=== PATIENT | female | born 1945 | race Caucasian/White ===

== ENCOUNTER 2025-03-05 13:09 | Day surgery (SDC) | payer MEDICARE, SELFPAY ==
--- NOTE | 2025-03-01 13:25 | PAT.ANE_ITS ---
Pre-Assessment Diagnosis/Proposed Procedure Planned Operative Procedure(s): EGD/CSCOPE Anesthesia History Anesthesia History - clinical documentation consultant: Anesthesia History - clinical documentation consultant Hx Hospitalization No 03/01/25 09:42 Any Problems With Anesthesia Yes: 15 YRS AGO AWAKENED 03/01/25 09:42 DURING CSCOPE Cholinesterase deficiency No 03/01/25 09:42 You/Your Family Experience No 03/01/25 09:42 fever (hyperthermia) with Relationship Recent Exposure to Contagious Disease Does patient have nerve No 03/01/25 09:42 stimulator Patient instructed to have device shut off --Does patient have Pacemaker or ICD? When Was Last Pacemaker Check QUESTION #4 FULL TEXT: You/Your Family Experience fever (hyperthermia) with Anesthesia Last Oral Intake Last Oral intake: Last Oral Intake NPO since Meds taken in AM with sips of water? Meds patient instructed to take am of surgery PONV PONV - clinical documentation consultant: PONV - clinical documentation consultant Female Yes 03/01/25 09:42 HX of Motion Sickness Yes 03/01/25 09:42 HX of N/V After Surgery No 03/01/25 09:42 Non-Smoker Yes 03/01/25 09:42 Duration of Surgery greater No 03/01/25 09:42 than 60 minutes Number of Risk Factors 3 03/01/25 09:42 PONV Score Moderate Risk 03/01/25 09:42 Height & Weight Height & Weight: Anesthesia: Height & Weight Height 5 ft 01/28/25 14:54 Respiratory Assessment Respiratory Assessment - clinical documentation consultant: Respiratory Tract Infection Hx - clinical documentation consultant Hx Respiratory Tract Infection No 03/01/25 09:42 STOP Sleep Apnea STOP Sleep Apnea - clinical documentation consultant: STOP Sleep Apnea - clinical documentation consultant Hx Hypertension Yes: CONTROLLED WITH MED 03/01/25 09:42 Hx Sleep Apnea No 03/01/25 09:42 CPAP BIPAP Do you snore loudly (louder No 03/01/25 09:42 than talking or can be heard Do you often feel tired/ No 03/01/25 09:42 fatigued/ sleepy during daytime? Has anyone observed you stop No 03/01/25 09:42 breathing during sleep? STOP Results Negative 03/01/25 09:42 QUESTION #5 FULL TEXT : Do you snore loudly (louder than talking or can be heard through closed doors)? 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 Specify any problems Hx of Preganancy in last 3 No 03/01/25 09:42 Months Nurse Filling Out Transfusion DSCHRIBER 03/01/25 09:42 & Questions: Date: 03/01/25 03/01/25 09:42 Time: 09:45 03/01/25 09:42 Patient unable to answer at this time (ie. confused, unrespo /Reproduction History /Reproductive History - clinical documentation consultant: /Reproductive Hx- clinical documentation consultant Hx Now No 03/01/25 09:42 Gestational Age (in weeks): EDC: Hx Hx Para Hx Section SAB No 03/01/25 09:42 PFS Medical History (Updated 03/01/25 @ 09:55 by Nicci Buckley) Post-menopausal Cancer Arthritis High cholesterol Back pain Gastric reflux Non-smoker Shortness of breath on exertion Leg cramps History of edema History of echocardiogram Cardiology follow-up encounter History of hiatal hernia Panic attacks MVP (mitral valve prolapse) Hypertriglyceridemia History of [place] (myocardial infarction) Diarrhea Aortic regurgitation Hypertension Home Medications ?Medication ?Instructions ?Recorded ?Last Taken ?Type cholecalciferol (vitamin D3) 50 2,000 unit PO QDAY Unknown History mcg (2,000 unit) capsule escitalopram oxalate 10 mg tablet 10 mg PO QDAY #90 ta bs 11/29/17 Unknown Rx multivitamin 1 tab PO QAM 11/29/17 History omeprazole magnesium 20 mg 20 mg PO QDAY 11/29/17 Unkn own History tablet,delayed release (Prilosec OTC) cyanocobalamin (vitamin B-12) 1,000 mcg PO QDAY 02/27/25 History 1,000 mcg capsule flaxseed oil 1,000 mg capsule 1,000 mg PO TID 01/28/25 Unknown History hydralazine 50 1 cap PO DAILY 01/28/25 Unkn own History mg-hydrochlorothiazide 50 mg capsule potassium chloride 8 mEq 8 meq PO QDAY 01/28/25 Unkno wn History capsule,extended release rosuvastatin 40 mg tablet 40 mg PO QDAY 01/28/25 Unkno wn History ondansetron HCl 4 mg tablet 4 mg PO Q8H PRN nausea and 02/14/25 Unknown Rx vomiting #10 tabs aspirin 81 mg tablet,delayed 81 mg PO DAILY 03/01/25 U nknown History release (Adult Aspirin Regimen) colestipol 1 gram tablet 1 g PO TIDWMEAL PRN stomach upset 03/01/25 Unknown History Allergy/AdvReac Type Severity Reaction Status Date / Time acetaminophen (From Percocet) Allergy Severe Unknown Verified 03/01/25 09:38 nitrofurantoin (From Allergy Severe swelling Verified 03/01/25 09:38 Macrobid) oxycodone (From Percocet) Allergy Severe Unknown Verified 03/01/25 09:38 penicillin G Allergy Severe unknown Verified 03/01/25 09:38 Sulfa (Sulfonamide Allergy Severe unknown Verified 03/01/25 09:38 Antibiotics) phenylpropanolamine (From Allergy Mild Other Verified 03/01/25 09:38 Entex LA) guaifenesin AdvReac Intermediate PT UNSURE Verified 03/01/25 09:58 OF REACTION phenylephrine AdvReac Intermediate PT UNSURE Verified 03/01/25 09:58 OF REACTION atorvastatin AdvReac Mild muscle pain Verified 03/01/25 09:38 Family History Father Cancer leukemia Mother Heart disease Surgical History (Updated 03/01/25 @ 09:55 by Nicci Buckley) Hx of right cataract extraction Hx of left cataract extraction History of coronary artery stent placement History of cardiac catheterization History of esophagogastroduodenoscopy (EGD) History of cholecystectomy History of colonoscopy Social History Smoking Status: Never smoker alcohol intake: never substance use type: does not use what type of physical activity do you participate in: walking and bicycling frequency: 3-4 times per week Audit: Pertinent Findings Pertinent Findings EKG Perinent findings: 01/31/2025. Ventricular rhythm, PVCs. Aberrant ventricular conduction. Possible anterior infarct age undetermined. Stress test pertinent findings: Negative. Lexiscan. 09/18/2024. EF 67%. Consult pertinent findings: Family practice physicians.. 01/30/2025. Mora Stevens. Findings. Shortness of breath. Recent stress test no ischemia. Continue to monitor. Stable coronary artery disease. Currently no anginal symptoms. Status post 3 stents. 01/05/2021. Hypertension. Controlled. Recommendation Anesthesia Recommendation Anesthesia recommendation: OPTIMIZED for anesthesia
[2025-03-05] VITALS (7 sets, daily range): BP systolic 135–179; BP diastolic 50–58; PULSE 47–77; RESP 16; TEMP 35.8–36.1; O2SAT 96–100; BMI 22.6
[2025-03-05] MEDS: Lactated Ringers 1,000 ML 15 ML IV (13:39)
--- NOTE | 2025-03-05 13:56 | PCM.PRE.AN2 ---
ASA Classification* ASA Classification ASA Classification: 3 Assessment & Plan Anesthesia* Anesthesia Assessment Anesthesia Assessment: Discussed sedation and/or anesthesia options, risks, benefits, and alternatives with patient/parents/legal guardian/POA. Questions invited. The patient/parents/legal guardian/POA seems to understand and agrees to proceed with anesthesia plan. Reviewed the physical assessment, medical history, allergy history and patient home medications list prior to surgery/procedure/anesthetic and documented any changes. Performed airway and anesthesia risk assessments. 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 When Was Last Pacemaker Check QUESTION #4 FULL TEXT: You/Your Family Experience fever (hyperthermia) with Anesthesia Last Oral Intake Last Oral intake: Last Oral Intake NPO since 11:00 03/05/25 13:27 Meds taken in AM with sips of No 03/05/25 13:27 water? 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 Female Yes 03/01/25 09:42 HX of Motion Sickness Yes 03/01/25 09:42 HX of N/V After Surgery No 03/01/25 09:42 Non-Smoker Yes 03/01/25 09:42 Duration of Surgery greater No 03/01/25 09:42 than 60 minutes Number of Risk Factors 3 03/01/25 09:42 PONV Score Moderate Risk 03/01/25 09:42 Height & Weight Height & Weight: Anesthesia: Height & Weight Height 5 ft 4 in 03/05/25 13:27 Weight: 60 kg 03/05/25 13:27 Body Mass Index (BMI) 22.6 03/05/25 13:27 Respiratory Assessment Respiratory Assessment - men's and boys' clothing salesperson: Respiratory Tract Infection Hx - men's and boys' clothing salesperson Hx Respiratory Tract Infection No 03/01/25 09:42 STOP Sleep Apnea STOP Sleep Apnea - men's and boys' clothing salesperson: STOP Sleep Apnea - men's and boys' clothing salesperson Hx Hypertension Yes: CONTROLLED WITH MED 03/01/25 09:42 Hx Sleep Apnea No 03/01/25 09:42 CPAP BIPAP Do you snore loudly (louder No 03/01/25 09:42 than talking or can be heard Do you often feel tired/ No 03/01/25 09:42 fatigued/ sleepy during daytime? Has anyone observed you stop No 03/01/25 09:42 breathing during sleep? STOP Results Negative 03/01/25 09:42 QUESTION #5 FULL TEXT : Do you snore loudly (louder than talking or can be heard through closed doors)? 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 Specify any problems Hx of Preganancy in last 3 No 03/01/25 09:42 Months Nurse Filling Out Transfusion DSCHRIBER 03/01/25 09:42 & Questions: Date: 03/01/25 03/01/25 09:42 Time: 09:45 03/01/25 09:42 Patient unable to answer at this time (ie. 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: /Reproductive Hx- men's and boys' clothing salesperson Hx Now No 03/01/25 09:42 Gestational Age (in weeks): EDC: Hx Hx Para Hx Section SAB No 03/01/25 09:42 Active Medications Active Medications: Current Medications Generic Name Dose Route Start Last Admin Trade Name Freq PRN Reason Stop Dose Admin Lactated Ringer's 1,000 mls @ 15 mls/hr 03/05/25 13:30 03/05/25 13:39 IV 15 mls/hr .Q48H ALEYDA Administration PFSH Medical History Post-menopausal Cancer Arthritis High cholesterol Back pain Gastric reflux Non-smoker Shortness of breath on exertion Leg cramps History of edema History of echocardiogram Cardiology follow-up encounter History of hiatal hernia Panic attacks MVP (mitral valve prolapse) Hypertriglyceridemia History of [place] (myocardial infarction) Diarrhea Aortic regurgitation Hypertension Home Medications ?Medication ?Instructions ?Recorded ?Last Taken ?Type cholecalciferol (vitamin D3) 50 2,000 unit PO QDAY 11/29/17 Unknown History mcg (2,000 unit) capsule escitalopram oxalate 10 mg tablet 10 mg PO QDAY #90 tabs 11/29/17 Unknown Rx multivitamin 1 tab PO QAM 11/29/17 02/27/25 History omeprazole magnesium 20 mg 20 mg PO QDAY 11/29/17 Unknown History tablet,delayed release (Prilosec OTC) cyanocobalamin (vitamin B-12) 1,000 mcg PO QDAY 01/28/25 02/27/25 History 1,000 mcg capsule flaxseed oil 1,000 mg capsule 1,000 mg PO TID 01/28/25 Unknown History hydralazine 50 1 cap PO DAILY 01/28/25 Unknown History mg-hydrochlorothiazide 50 mg capsule potassium chloride 8 mEq 8 meq PO QDAY 01/28/25 Unknown History capsule,extended release rosuvastatin 40 mg tablet 40 mg PO QDAY 01/28/25 Unknown History ondansetron HCl 4 mg tablet 4 mg PO Q8H PRN nausea and 02/14/25 Unknown Rx vomiting #10 tabs aspirin 81 mg tablet,delayed 81 mg PO DAILY 03/01/25 03/04/25 History release (Adult Aspirin Regimen) colestipol 1 gram tablet 1 g PO TIDWMEAL PRN stomach upset 03/01/25 Unknown History Allergy/AdvReac Type Severity Reaction Status Date / Time acetaminophen (From Percocet) Allergy Severe Unknown Verified 03/05/25 13:26 nitrofurantoin (From Allergy Severe swelling Verified 03/05/25 13:26 Macrobid) oxycodone (From Percocet) Allergy Severe Unknown Verified 03/05/25 13:26 penicillin G Allergy Severe unknown Verified 03/05/25 13:26 Sulfa (Sulfonamide Allergy Severe unknown Verified 03/05/25 13:26 Antibiotics) phenylpropanolamine (From Allergy Mild Other Verified 03/05/25 13:26 Entex LA) guaifenesin AdvReac Intermediate PT UNSURE Verified 03/05/25 13:26 OF REACTION phenylephrine AdvReac Intermediate PT UNSURE Verified 03/05/25 13:26 OF REACTION atorvastatin AdvReac Mild muscle pain Verified 03/05/25 13:26 Family History Father Cancer leukemia Mother Heart disease Surgical History Hx of right cataract extraction Hx of left cataract extraction History of coronary artery stent placement History of cardiac catheterization History of esophagogastroduodenoscopy (EGD) History of cholecystectomy History of colonoscopy Social History Smoking Status: Never smoker alcohol intake: never substance use type: does not use what type of physical activity do you participate in: walking and bicycling frequency: 3-4 times per week Review of Systems (Anesthesia) ROS Narrative System reviewed and no additional complaints, except as documented.
--- NOTE | 2025-03-05 14:30 | COLBX_PTH ---
PATIENT: ERMA MIGUEL LOC: EN U#:[id number] AGE/SX: 80/F ROOM: RE03/05/[address]: Dr. Juan M Callahan DO : 1945 BED: DIS: 03/05/2025 SPEC #: [id number] RECD: 03/05/25 18:20 STATUS: SHANNAN RENoah #: [id number] BROOK[place]NN: 03/05/25 14:[address]: Juan M Callahan DEPT: SURGICAL PATHOLOGY RECD BY: Matteo Szymanski ENTERED: 03/06/25 10:40 SP TYPE: COLON BX OTHR DR: Dr. Miki Mccann, DO Tissues: A - Gastric mucous membrane B - Gastric mucous membrane C - Duodenum, NOS D - Cecum, NOS E - Ileum, NOS F - COLON BIOPSY Procedures: Immunohistochemical Stains Surgery Specimen Level IV HEADER OPERATION: Colonoscopy with biopsy, EGD with biopsy PRE-OP DIAGNOSIS: Diarrhea TISSUE SUBMITTED: A- Gastric body biopsy, B- Gastric antrum biopsy, C- Duodenum biopsy, D- Cecal polyp biopsy, E- Terminal ileum biopsy, F- Random colon biopsy MICROSCOPIC DIAGNOSIS A. Gastric body, biopsy: - Mildly active chronic inflammation with features of reactive gastropathy. - IHC negative for H. pylori organisms. B. Gastric antrum, biopsy: * Features of reactive gastropathy. * IHC negative for H. pylori organisms. C. Duodenum, biopsy: * Normal villous architecture with Markell gland hyperplasia. * Negative for increased intraepithelial lymphocytes. D. Cecum, polyp, biopsy: * Tubular adenoma. E. Terminal ileum, biopsy: * No specific pathologic change. F. Colon, random, biopsy: * No specific pathologic change. * The histologic features of microscopic colitis are not demonstrated. MICROSCOPIC DESCRIPTION Slides are reviewed. All matched controls reacted appropriately. These tests were developed and their performance characteristics determined by [facility]. They may not have been cleared or approved by the [place]. Food and Drug Administration. The FDA has determined that such clearance or approval is not necessary. The above immunohistochemical/dualISH markers are viewed by the Pathologist. GROSS DESCRIPTION A. Received in fixative is one container labeled with the patient's name and designated Gastric body biopsy. The specimen consists of three irregular fragments of matias tissue that measure 0.1 to 0.7 cm. The specimen is totally submitted in one cassette. B. Received in fixative is one container labeled with the patient's name and designated Gastric antrum biopsy. The specimen consists of one irregular fragment of matias tissue that measures 0.4 cm. The specimen is totally submitted in one cassette. C. Received in fixative is one container labeled with the patient's name and designated Duodenum biopsy. The specimen consists of four irregular fragments of matias tissue that measure 0.3 to 0.6 cm. The specimen is totally submitted in one cassette. D. Received in fixative is one container labeled with the patient's name and designated Cecal polyp biopsy. The specimen consists of two irregular fragments of matias tissue that measure 0.3 and 0.4 cm. The specimen is totally submitted in one cassette. E. Received in fixative is one container labeled with the patient's name and designated Terminal ileum biopsy. The specimen consists of multiple irregular fragments of matias tissue that in aggregate measure 0.8 x 0.7 x 0.1 cm. The specimen is totally submitted in one cassette. F. Received in fixative is one container labeled with the patient's name and designated Random colon biopsy. The specimen consists of multiple irregular fragments of matias tissue that in aggregate measure 1.2 x 0.8 x 0.2 cm. The specimen is totally submitted in one cassette. [place] 03/06/2025 CPT:[id number]
--- NOTE | 2025-03-05 14:32 | PCM.HP.STD ---
[facility] - General General Date of Admission: 03/05/25 Date of Service: 03/05/25 Chief Complaint: weight loss, diarrhea, abdominal pain [facility] Narrative ERMA MIGUEL, is a 80 F who presents the Chief Complaint: weight loss, diarrhea, abdominal pain Details: Labs 09/18/2024 HGB 11, PLT 204 - pretzel, water, and toast the past toast - aching abdominal pain and diarrhea after meals - 6lb weight loss in the past 10 days - diarrhea is after eating - denies any h/o pancreatitis - denies any ATB or travel - denies any well water - denies any bleeding - 2-4x a day depending on how much she has eaten - c/o fecal incontinence - denies any Imodium in the past week - nausea, denies any emesis, resolves after a BM - probiotic x6 weeks no change in symptoms - Plavix h/o IA - CCX 15-20 years ago - reports she was not aware CCX could result in diarrhea - denies any nocturnal stools - seen in office today with her The patient is an 79-year-old female presenting with gastrointestinal symptoms, primarily chronic diarrhea. The patient reports experiencing diarrhea after meals for the past 20 years, which has worsened in frequency and urgency over the last five years. Despite attempts to identify food triggers, she has been unable to connect diarrhea to specific dietary factors. The episodes consist of liquid diarrhea typically occurring soon after meals. In efforts to manage symptoms, she has used loperamide (Imodium) on an as-needed basis without experiencing rebound constipation. In the past week, she reported an intensification of symptoms, including abdominal cramping and pain, leading to significant dietary restriction to bland foods like pretzels, water, and toast. Despite these dietary modifications, she experienced a weight loss of approximately six pounds over ten days. It is noted that she abstained from eating due to these symptoms, impacting her bowel movements' frequency. The patient's medical history is significant for a cholecystectomy performed 15 to 20 years ago, correlating with the onset of diarrhea 20 years ago. She was briefly on a probiotic but discontinued it when gastrointestinal discomfort manifested without subsequent improvement in symptoms. Her medication regimen includes Plavix, taken post-myocardial infarction, and chronic use of escitalopram and omeprazole. She is also on rosuvastatin and a potassium supplement due to previous low levels attributed to stool losses. The patient has no history of pancreatitis, recent antibiotic use, travel, or well water consumption. There is no family history of colon cancer, and she denies any history of colorectal polyps. The patient shared concerns regarding urgent bowel movements causing accidents, although nocturnal diarrhea is rare. She experiences nausea and cramping alleviated by bowel movements and heating pad use, without vomiting or fever. ROS Const Constitutional: Positive for fatigue and weight change (loss); No fever(s) ENT ENT: No difficulty swallowing Gastro GI: Positive for abdominal pain, bloating, change in bowel habits, diarrhea, heartburn and nausea/dyspepsia; No belching, change in stool character, coffee ground emesis, constipation, cramping, difficulty swallowing, feeling full early, excessive flatus, incontinent of stools, Vomiting blood/hematemesis, Blood in stool, loose stools, Black,tarry stools, pain with swallowing, vomiting or other Musc Musculoskeletal: Positive for back pain, muscle cramps, stiffness and Arthritis; No joint pain Skin Skin: No yellowing of the eye or itchy eyes Neuro Neurology: Positive for dizziness Psych Psychiatric: No anxiety and No depression Endo Endocrine: Positive for fatigue and weight change (loss) Aller/Imm Allergy/Immunologic: No itchy eyes Dioni/Lymp Hematologic/Lymphatic: Positive for easy bleeding and easy bruising ROS Narrative - Gastrointestinal: Reports chronic diarrhea, postprandial urgency, stomach cramps, abdominal pain, weight loss. Denies vomiting, blood in stools, recent travel history, recent antibiotic usage. - Cardiovascular: History of myocardial infarction, taking Plavix; denies recent chest pain. - Constitutional: Reports weight loss, general malaise. - Respiratory: Denies lung disease or symptoms. - Genitourinary: History of kidney stones; denies current symptoms. - Musculoskeletal: Denies significant symptoms. - Neurological: Denies symptoms. [facility] Medical History Post-menopausal Cancer Arthritis High cholesterol Back pain Gastric reflux Non-smoker Shortness of breath on exertion Leg cramps History of edema History of echocardiogram Cardiology follow-up encounter History of hiatal hernia Panic attacks MVP (mitral valve prolapse) Hypertriglyceridemia History of IA (myocardial infarction) Diarrhea Aortic regurgitation Hypertension Home Medications ?Medication ?Instructions ?Recorded ?Last Taken ?Type cholecalciferol (vitamin D3) 50 2,000 unit PO QDAY 11/29/17 Unknown History mcg (2,000 unit) capsule escitalopram oxalate 10 mg tablet 10 mg PO QDAY #90 tabs 11/29/17 Unknown Rx multivitamin 1 tab PO QAM 11/29/17 02/27/25 History omeprazole magnesium 20 mg 20 mg PO QDAY 11/29/17 Unknown History tablet,delayed release (Prilosec OTC) cyanocobalamin (vitamin B-12) 1,000 mcg PO QDAY 01/28/25 02/27/25 History 1,000 mcg capsule flaxseed oil 1,000 mg capsule 1,000 mg PO TID 01/28/25 Unknown History hydralazine 50 1 cap PO DAILY 01/28/25 Unknown History mg-hydrochlorothiazide 50 mg capsule potassium chloride 8 mEq 8 meq PO QDAY 01/28/25 Unknown History capsule,extended release rosuvastatin 40 mg tablet 40 mg PO QDAY 01/28/25 Unknown History ondansetron HCl 4 mg tablet 4 mg PO Q8H PRN nausea and 02/14/25 Unknown Rx vomiting #10 tabs aspirin 81 mg tablet,delayed 81 mg PO DAILY 03/01/25 03/04/25 History release (Adult Aspirin Regimen) colestipol 1 gram tablet 1 g PO TIDWMEAL PRN stomach upset 03/01/25 Unknown History Allergy/AdvReac Type Severity Reaction Status Date / Time acetaminophen (From Percocet) Allergy Severe Unknown Verified 03/05/25 13:26 nitrofurantoin (From Allergy Severe swelling Verified 03/05/25 13:26 Macrobid) oxycodone (From Percocet) Allergy Severe Unknown Verified 03/05/25 13:26 penicillin G Allergy Severe unknown Verified 03/05/25 13:26 Sulfa (Sulfonamide Allergy Severe unknown Verified 03/05/25 13:26 Antibiotics) phenylpropanolamine (From Allergy Mild Other Verified 03/05/25 13:26 Entex [place]) guaifenesin AdvReac Intermediate PT UNSURE Verified 03/05/25 13:26 OF REACTION phenylephrine AdvReac Intermediate PT UNSURE Verified 03/05/25 13:26 OF REACTION atorvastatin AdvReac Mild muscle pain Verified 03/05/25 13:26 Family History Father Cancer leukemia Mother Heart disease Surgical History Hx of right cataract extraction Hx of left cataract extraction History of coronary artery stent placement History of cardiac catheterization History of esophagogastroduodenoscopy (EGD) History of cholecystectomy History of colonoscopy Social History Smoking Status: Never smoker alcohol intake: never substance use type: does not use what type of physical activity do you participate in: walking and bicycling frequency: 3-4 times per week ROS Constitutional Constitutional: Denies fatigue, fever(s), poor appetite, weight gain or weight loss Gastrointestinal Gastrointestinal: Denies belching, bloating, change in bowel habits, change in stool character, chewing difficulty, coffee ground emesis, constipation, cramping, diarrhea, dyspepsia, dysphagia, early satiety, excessive flatus, fecal incontinence, heartburn, hematemesis, hematochezia, hemorrhoids, loose stools, melena, nausea, odynophagia, rectal bleeding, tenesmus, vomiting or weight changes Vital Signs Vital Signs Vital Signs: 03/05/25 13:27 03/05/25 13:27 03/05/25 14:03 Temperature 97.0 F L 97.0 F L Temperature Source Temporal Pulse Rate 47 L 47 L Respiratory Rate 16 16 Respiratory Pattern Normal Blood Pressure 179/50 H 179/50 H Blood Pressure Mean 93 Blood Pressure Source Monitor Blood Pressure Position Semi-Fowlers Pulse Ox 100 100 Oxygen Delivery Method Room Air Room Air Weight Weight: 132 lb 4.438 oz Body Mass Index (BMI) 22.6 Physical Exam Const alert, oriented x3, no apparent distress and healthy appearing General Appearance: cooperative GI normal to inspection, nondistended, normoactive bowel sounds, soft to palpation, non-tender and non-distended Percussion: normal to percussion Rectal Exam: deferred Assessment & Plan Assessment/Plan (1) Diarrhea: PLAN: Assessment and Plan Assessment and Plan (1) Diarrhea: Status: Acute Plan: Initiate stool testing to rule out infectious or inflammatory causes. Plan for a scheduled colonoscopy to ensure structural integrity of the colon and rule out potential lesions. Discussed potential initiation of cholestyramine therapy contingent on negative stool studies for bacterial or parasitic agents. If appropriate, prescribe cholestyramine starting with half-packet twice daily, adjusting based on tolerance and efficacy, to address bile acid-induced diarrhea. Medications: New peg 3350-sod sulf,[id number] 178.7-7.3-0.5 gram (Suflave) Take as directed for split dose bowel prep 2 mL 0RF cholestyramine (Cholestyramine Light) administer w/meal; avoid other meds within 1hr before or 4-6hr after dose 2 grams PO BID 30 ea 1RF Plan 79-year-old female with history of cholecystectomy presenting with chronic diarrhea. The symptomatology, including postprandial diarrhea since the removal of the gallbladder, suggests bile acid diarrhea, likely exacerbated by changes in dietary habits and prior medical history. Notably, her bowel pattern has significantly hindered quality of life recently, causing distress and weight loss. The patient exhibits other symptoms such as nausea and abdominal cramping, reasonably correlated with bile acid malabsorption. Differential diagnoses were considered, but her clinical picture aligns best with bile acid diarrhea. However, confirmation and exclusion of other etiologies will be conducted via stool testing and a future colonoscopy. Patient Instructions: Complete [facility] stool testing Colonoscopy - SuFlave If stool testing is negative she will start Cholestyramine (RX sent to pharmacy)
--- OUTSIDE RECORDS SUMMARY | 2025-03-05 15:20 | XMS RPT_ITS | CCD ---
Author Organization [facility] Care Team Providers Care Manager Data Name Role Phone CHUCK MCCANN DO Primary Care Unavailable FISH MACHINE MOLDER SQUEEZE-REFUELERKALPESH Attending Unavailab le MAST MACHINE MOLDER SQUEEZE-REFUELER, [place] Primary Care Physician Dr. Chuck Mccann DO Primary Care Provider Dr. Chuck Mccann DO Referring Provider Benjamín LEMON-CCrystal Attending Provider MAST MACHINE MOLDER SQUEEZE-REFUELER, [place] Primary Care Unavailabl e MAST MACHINE MOLDER SQUEEZE-REFUELER, [place] Attending Unavailabl e MAST MACHINE MOLDER SQUEEZE-REFUELER, [place] Primary Care Unavailabl e MAST MACHINE MOLDER SQUEEZE-REFUELER, [place] Attending Unavailabl e KAPPER MACHINE MOLDER SQUEEZE-REFUELER, CIERRA Eid Admitting Unavaila ble MAST MACHINE MOLDER SQUEEZE-REFUELER, [place] Primary Care Unavailabl e DAY JIMÉNEZ DO Attending Unavailable FISH MACHINE MOLDER SQUEEZE-REFUELER, KALPESH Attending Unavailab le MAST MACHINE MOLDER SQUEEZE-REFUELER, [place] Primary Care Unavailabl e Chuck Mccann Primary Care Unavailable Chuck Mccann Referring Unavailable Crystal Butts Attending Unavailable Chuck Mccann Primary Care Unavailable Juan M Callahan Attending Unavailable Allergies Allergy Classification Reported Allergen(s) Allergy Type Date of Onset Reaction(s) Facility (3 sources) Acetaminophen / oxyCODONE; Translations: [acetaminophen-oxycodo ne] Drug Allergy [facility] (4 sources) atorvastatin; Translations: [atorvastatin] Drug Allergy 01-29-20 Muscle pain (finding) [facility] (3 sources) guaiFENesin / Phenylephrine / Phenylpropanolamine; Translations: [guaifenesin/phenyleph rine/PPA] Drug Allergy [facility] (2 sources) Penicillin; Translations: [penicillins] Drug Allergy [facility] (3 sources) Sulfonamide; Translations: [sulfa drugs] Drug allergy [facility] (1 source) Acetaminophen Drug Allergy 01-29-20 Unknown [facility] (1 source) guaiFENesin Drug Allergy 01-29-20 NEEDS FOLLOW-UP [facility] Comment on above: [facility] (1 source) Nitrofurantoin Drug Allergy 01-29-20 swelling [facility] (1 source) oxyCODONE Drug Allergy 01-29-20 Unknown [facility] (1 source) Penicillin G Drug Allergy 01-29-20 unknown [facility] (1 source) Phenylephrine Drug Allergy 01-29-20 NEEDS FOLLOW-UP [facility] Comment on above: [facility] (1 source) Phenylpropanolamine Drug Allergy 01-29-20 Other [facility] (1 source) Sulfonamides (Antibiotic) Allergy to substance 01-29-20 unknown [facility] (1 source) Penicillin; Translations: [penicillins] Drug Allergy [facility] (1 source) Acetaminophen Drug Allergy 03-01-20 [facility] (1 source) atorvastatin Drug Allergy 03-01-20 [facility] (1 source) guaiFENesin Drug Allergy 03-01-20 [facility] (1 source) Nitrofurantoin Drug Allergy 03-01-20 [facility] (1 source) oxyCODONE Drug Allergy 03-01-20 [facility] (1 source) Penicillin Drug Allergy 03-01-20 [facility] (1 source) Phenylephrine Drug Allergy 03-01-20 [facility] (1 source) Phenylpropanolamine Drug Allergy 03-01-20 [facility] (1 source) Sulfonamides (Antibiotic) Drug allergy (disorder) 03-01-20 [facility] Medications Current Medications Medication Drug Class(es) Dates Sig (Normalized) Sig (Original) Acidophilus Extra Strength oral capsule (1 source) Start: 11-19-2024 take 1 capsule by mouth once daily Acidophilus Extra Strength oral capsule Dose = 1 cap(s), Oral, qDay, # 30 cap(s), 2 Refill(s), Pharmacy: [facility]/pharmacy #[id number], 150, cm, 11/19/24 10:34:00 EDT, Height, kg, 11/19/24 10:34:00 EDT, Dosing Weight Start Date: 11/19/24 Status: Ordered Medication Dispense Status: Completed Quantity: 30.0 Unit: cap(s) Total Allowed Fills: 3 Fills Dispensed: 0 Adult Multivitamin Gummies (3 sources) Start: 12-26-2023 Adult Multivitamin Gummies 0 Refill(s) Start Date: 12/26/23 Status: Ordered Medication Dispense Status: Completed Total Allowed Fills: 1 Fills Dispensed: 0 Start: 12-26-2023 Adult Multivit basurto Gummies 0 Refill(s) Start Date: 12/26/23 Status: Ordered Repeat number: 1 Start: 12-26-2023 Adult Multivit basurto Gummies 0 Refill(s) Start Date: 12/26/23 Status: Ordered cholecalciferol 0.05 mg oral capsule (1 source) Vitamin D Start: 11-29-2017 take 1 capsule by mouth once daily Cholecalciferol (Vitamin D3) 2,000 unit capsule Active 2000 U PO daily November 29, 2017 12:00am sugar-free cholestyramine resin 4000 mg powder for oral suspension (1 source) Bile Acid Sequestrant Start: 01-28-2025 Cholestyramine (Cholestyramine Light) 4 gram powder in packet Active 2 g PO TWICE A DAY 30 1 January 28, 2025 12:00am administer w/meal; avoid other meds within 1hr before or 4-6hr after dose Chondroitin Sulfates / Glucosamine (1 source) Start: 01-28-2025 Glucosamine-Chondroi tin 250-200 mg tablet Active 2 {tbl} PO after meals January 28, 2025 12:00am clopidogrel 75 mg oral tablet (4 sources) P2Y12 Platelet Inhibitor Start: 09-10-2024 take 1 tablet by mouth once daily Clopidogrel (Plavix) 75 mg tablet Active 75 mg PO daily January 28, 2025 12:00am Start: 12-26-2023 take 1 mg by mouth once daily Plavix 75 mg oral tablet mg = tab(s), Oral, qDay, 0 Refill(s) Start Date: 12/26/23 Status: Ordered escitalopram 10 mg oral tablet (5 sources) Serotonin Reuptake Inhibitor Start: 09-12-2024 Lexapro 10 mg oral tablet Dose : 10 mg = 1 tab(s), Oral, Daily, # 90 tab(s), 3 Refill(s), [id number] 151, cm, 09/12/24 9:59:00 EDT, Height, kg, 09/12/24 9:59:00 EDT, Dosing Weight Start Date: 09/12/24 Status: Ordered Medication Dispense Status: Completed Quantity: 90.0 Unit: tab(s) Total Allowed Fills: 4 Fills Dispensed: 0 Start: 09-01-2017 End: 11-29-2017 Lexapro 10 mg oral tablet Do se : 10 mg = 1 tab(s), Oral, Daily, # 90 tab(s), 3 Refill(s), [id number], 151, cm, 09/12/24 9:59:00 EDT, Height, kg, 09/12/24 9:59:00 EDT, Dosing Weight Start Date: 09/12/24 Status: Ordered Quantity: 90.0 Unit: tab(s) Repeat number: 4 flax seed oil 1000 mg oral capsule (2 sources) Start: 07-23-2024 flax seed oil 1000 mg oral capsule Dose : 1,000 mg = 1 cap(s), Oral, TID, 0 Refill(s) Start Date: 07/23/24 Status: Ordered Medication Dispense Status: Completed Total Allowed Fills: 1 Fills Dispensed: 0 Start: 07-23-2024 flax seed oil 1000 mg oral capsule Dose : 1,000 mg = 1 cap(s), Oral, TID, 0 Refill(s) Start Date: 07/23/24 Status: Ordered Repeat number: 1 Hydralazine-Hydrochlorothiaz id 50-50 mg capsule (1 source) Start: 01-28-2025 Hydralazine-Hydrochlorothiaz id 50-50 mg capsule Active NMA PO January 28, 2025 12:00am hydroCHLOROthiazide 25 mg / losartan potassium 100 mg oral tablet (5 sources) Thiazi de Steven ic, Angiot ensin 2 Recept or Blocke r Start: 09-01-2017 End: 09-07-2025 take 1 tablet by mouth once daily hydrochlorothiazide-losartan 25-100 mg oral tablet Dose = 1 tab(s), Oral, qDay, # 90 tab(s), 3 Refill(s), Pharmacy: [facility]/pharmacy #[id number], 151, cm, 09/12/24 9:59:00 EDT, Height, kg, 09/12/24 9:59:00 EDT, Dosing Weight Start Date: 09/12/24 Stop Date: 09/07/25 Status: Ordered Medication Dispense Status: Completed Quantity: 90.0 Unit: tab(s) Total Allowed Fills: 4 Fills Dispensed: 0 linseed oil 1000 mg oral capsule (1 source) Start: 01-28-2025 take 1 capsul e by mouth three times daily at [place] Flaxseed Oil 1,000 mg capsule Active 1000 mg PO THREE TIMES A DAY January 28, 2025 12:00am administer with meals magniesum (1 source) Start: 03-14-2024 magniesum magniesum, 0 Refill(s), 70.2 Start Date: 03/14/24 Status: Ordered Multivitamin tablet (1 source) Start: 11-29-2017 Multivitamin tablet Active 1 {tbl} PO EVERY MORNING November 29, 2017 12:00am nitroglycerin 0.4 mg subling ual tablet (3 sources) Nitrat e Vasodi lator Start: 10-02-2024 nitroglycerin 0.4 mg subling ual tablet 0.4 mg Dose = 1 tab(s), Sublingual, q5min, PRN for chest pain, # 25 tab(s), 1 Refill(s), Pharmacy: [facility]/pharmacy #[id number], 155, cm, 10/02/24 9:56:00 EDT, Height, kg, 10/02/24 9:56:00 EDT, Dosing Weight Start Date: 10/02/24 Status: Ordered Medication Dispense Status: Completed Quantity: 25.0 Unit: tab(s) Total Allowed Fills: 2 Fills Dispensed: 0 Start: 12-26-2023 End: 02-10-2024 nitroGLYcerin Dose : 0.4 mg =, Sublingual, q5min, If chest pain not relieved in 5 minutes after first dose, seek immediate medical attention, 0 Refill(s) Start Date: 12/26/23 Stop Date: 02/10/24 Status: Ordered omeprazole 20 mg oral tablet (4 sources) Proton Pump Inhibitor Start: 12-26-2023 take 1 dose by mouth once daily PriLOSEC Dose : 20 mg =, Oral, qDay, 0 Refill(s) Start Date: 12/26/23 Status: Ordered Medication Dispense Status: Completed Total Allowed Fills: 1 Fills Dispensed: 0 Start: 11-29-2017 take 1 tablet by rodney th once daily Omeprazole Magnesium (Prilosec Otc) 20 mg tablet,delayed release (DR/EC) Active 20 mg PO daily November 29, 2017 12:00am Osteo Bi-Flex Triple Strengt h oral tablet (3 sources) Start: 12-26-2023 Osteo Bi-Flex Triple Strength oral tablet 0 Refill(s) Start Date: 12/26/23 Status: Ordered Medication Dispense Status: Completed Total Allowed Fills: 1 Fills Dispensed: 0 Start: 12-26-2023 Osteo Bi-Flex Triple Strength oral tablet 0 Refill(s) Start Date: 12/26/23 Status: Ordered Repeat number: 1 Start: 12-26-2023 Osteo Bi-Flex Triple Strength oral tablet 0 Refill(s) Start Date: 12/26/23 Status: Ordered Peg 3350-Sod Sulf,Tuoc-Cmh-Xky (Suflave) 178.7-7.3-0.5 gram recon soln (1 source) Start: 01-28-2025 Peg 3350-Sod Sulf,Qwqa-Ueb-Dyb (Suflave) 178.7-7.3-0.5 gram recon soln Active 0 PO .COMPLEX 2 0 January 28, 2025 12:00am Take as directed for split dose bowel prep potassium chloride 8 meq extended release oral capsule (4 sources) Start: 01-28-2025 take 1 capsule by mouth once daily Potassium Chloride 8 mEq capsule, extended release Active 8 meq PO daily January 28, 2025 12:00am Start: 09-12-2024 Potassium Chlo ride (Vyt-Pldv-Mqx M20) 20 mEq oral tablet, extended release Dose : 20 mEq = 1 tab(s), Oral, qDay, # 90 tab(s), 3 Refill(s), [id number], 151, cm, 09/12/24 9:59:00 EDT, Height, kg, 09/12/24 9:59:00 EDT, Dosing Weight Start Date: 09/12/24 Status: Ordered Medication Dispense Status: Completed Quantity: 90.0 Unit: tab(s) Total Allowed Fills: 4 Fills Dispensed: 0 Start: 09-12-2024 Potassium Chlo ride (Qmb-Bojy-Kmn M20) 20 mEq oral tablet, extended release Dose : 20 mEq = 1 tab(s), Oral, qDay, # 90 tab(s), 3 Refill(s), [id number], 151, cm, 09/12/24 9:59:00 EDT, Height, kg, 09/12/24 9:59:00 EDT, Dosing Weight Start Date: 09/12/24 Status: Ordered Quantity: 90.0 Unit: tab(s) Repeat number: 4 Start: 02-20-2024 Potassium Chlo ride (Mqt-Sxre-Uof M20) 20 mEq oral tablet, extended release Dose : 20 mEq = 1 tab(s), Oral, qDay, # 90 tab(s), 0 Refill(s), Pharmacy: [facility] [place], 149.9, cm, 01/11/24 10:51:00 EDT, Height, kg, 01/11/24 10:51:00 EDT, Dosing Weight Start Date: 02/20/24 Status: Ordered rosuvastatin calcium 40 mg oral tablet (4 sources) HMG-CoA Reductase Inhibitor Start: 03-19-2024 take 1 tablet by mouth once daily Rosuvastatin 40 mg tablet Active 40 mg PO daily January 28, 2025 12:00am vitamin b12 1 mg oral capsule (3 sources) Vitamin B12 Start: 01-28-2025 take 1 capsule by mouth once daily Cyanocobalamin (Vitamin B-12) 1,000 mcg capsule Active 1000 ug PO daily January 28, 2025 12:00am Start: 09-17-2024 Vitamin B12 0 Refill(s) Start Date: 09/17/24 Status: Ordered Medication Dispense Status: Completed Total Allowed Fills: 1 Fills Dispensed: 0 Start: 09-17-2024 Vitamin B12 0 Refill(s) Start Date: 09/17/24 Status: Ordered Repeat number: 1 Vitamin D3 25 mcg (1000 intl units) oral capsule (3 sources) Start: 01-11-2024 Vitamin D3 25 mcg (1000 intl units) oral capsule Dose : 25 mcg = 1 cap(s), Oral, Daily, 0 Refill(s) Start Date: 01/11/24 Status: Ordered Medication Dispense Status: Completed Total Allowed Fills: 1 Fills Dispensed: 0 Start: 01-11-2024 Vitamin D3 25 mcg (1000 intl units) oral capsule Dose : 25 mcg = 1 cap(s), Oral, Daily, 0 Refill(s) Start Date: 01/11/24 Status: Ordered Repeat number: 1 Start: 01-11-2024 Vitamin D3 25 mcg (1000 intl units) oral capsule Dose : 25 mcg = 1 cap(s), Oral, Daily, 0 Refill(s) Start Date: 01/11/24 Status: Ordered Completed/Discontinued Medications Medication Drug Class(es) Dates Sig (Normalized) Sig (Original) amLODIPine 5 mg oral tablet (2 sources) Dihydropyridine Calcium Channel Magy Start: 11-29-2017 End: 01-28-2025 take 1 tablet by mouth once daily Amlodipine 5 mg tablet Discontinued 5 mg PO daily 90 1 November 29, 2017 1:48pm January 28, 2025 12:01pm aspirin 81 mg chewable tablet (1 source) Platelet Aggregation Inhibitor, Nonsteroidal Anti-inflammatory Drug Start: 11-29-2017 End: 01-28-2025 take 1 tablet by mouth once daily Aspirin 81 mg tablet,chewable Discontinued 81 mg PO daily November 29, 2017 12:00am January 28, 2025 12:01pm glucosamine sulfate 500 mg oral tablet (1 source) Start: 11-29-2017 End: 01-28-2025 take 1 tablet by mouth twice daily Glucosamine Sulfate (Glucosamine) 500 mg tablet Discontinued 500 mg PO TWICE A DAY November 29, 2017 12:00am January 28, 2025 12:01pm lactobacillus acidophilus [id number] unt oral capsule (1 source) Start: 01-28-2025 End: 01-28-2025 Lactobacillus Acidophilus 1 billion cell capsule Discontinued 1000 NMA PO daily January 28, 2025 12:00am January 28, 2025 2:53pm Problems Active Problems Problem Classification Problem Date Documented Da te Episodic/Chronic Anxiety disorders (4 sources) Panic attack; Translations: [Anxiety] 05-28-2016 Chronic Coronary atherosclerosis and other heart disease (6 sources) Coronary arteriosclerosis; Translations: [History of myocardial infarction] 09-12-2024 Chronic Deficiency and other anemia (2 sources) Anemia 09-12-2024 Episodic Disorders of lipid metabolism (4 sources) Hypertriglyceridemia; Translations: [Pure hyperglyceridemia] Onset: 5 09-12-2024 Chronic Esophageal disorders (3 sources) Gastroesophageal reflux disease 05-28-2016 Chronic Essential hypertension (6 sources) Hypertensive disorder; Translations: [Essential (primary) hypertension] Onset: 5 05-28-2016 Chronic Heart valve disorders (4 sources) Aortic valve regurgitation; Translations: [Mitral valve prolapse] 09-12-2024 Chronic Osteoarthritis (3 sources) Bilateral osteoarthritis of knees 12-26-2023 Chronic Other gastrointestinal disorders (1 source) Irritable bowel syndrome 11-19-2024 Chronic Other gastrointestinal disorders (3 sources) Diarrhea; Translations: [Diarrhea, unspecified] 01-28-2025 Episodic Other gastrointestinal disorders (1 source) Diarrhea, unspecified; Translations: [Diarrhea, unspecified] Onset: Episodic Unclassified (3 sources) Patient encounter status 12-26-2023 Past or Other Problems Problem Classification Problem Date Documented Da te Episodic/Chronic Conditions associated with dizziness or vertigo (1 source) Dizziness and giddiness; Translations: [Dizziness and giddiness] Onset: 09-17-2024 Episodic Nonspecific chest pain (1 source) Chest pain, unspecified; Translations: [Chest pain, unspecified] Onset: 09-17-2024 Episodic Other screening for suspected conditions (not mental disorders or infectious disease) (2 sources) Encounter for screening mammogram for malignant neoplasm of breast; Translations: [Encounter for screening mammogram for malignant neoplasm of breast] Onset: 03-27-2024 Episodic Results Test Name Value Interpretation Reference Range Facility /[place] 03-01-2025 /[facility] Medical Records Department [address] [place] [id number] PAT - Anesthesia 03/01/25 1325 MR#: [id number] Acct: [id number] Name: ERMA MIGUEL Rep #: [id number] : 1945 80 From: Joseph Hansen MD PCP: Dr. 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 When Was Last Pacemaker Check QUESTION #4 FULL TEXT: You/Your Family Experience fever (hyperthermia) with Anesthesia Last Oral Intake Last Oral intake: Last Oral Intake NPO since Meds taken in AM with sips of water? Meds patient instructed to take am of surgery PONV PONV - oceanography professor: PONV - oceanography professor Female Yes 03/01/25 09:42 HX of Motion Sickness Yes 03/01/25 09:42 HX of N/V After Surgery No 03/01/25 09:42 Non-Smoker Yes 03/01/25 09:42 Duration of Surgery greater No 03/01/25 09:42 than 60 minutes Number of Risk Factors 3 03/01/25 09:42 PONV Score Moderate Risk 03/01/25 09:42 Height Weight Height Weight: Anesthesia: Height Weight Height 5 ft 01/28/25 14:54 Respiratory Assessment Respiratory Assessment - oceanography professor: Respiratory Tract Infection Hx - oceanography professor Hx Respiratory Tract Infection No 03/01/25 09:42 STOP Sleep Apnea STOP Sleep Apnea - oceanography professor: STOP Sleep Apnea - oceanography professor Hx Hypertension Yes: CONTROLLED WITH MED 03/01/25 09:42 Hx Sleep Apnea No 03/01/25 09:42 CPAP BIPAP Do you snore loudly (louder No 03/01/25 09:42 than talking or can be heard Do you often feel tired/ No 03/01/25 09:42 fatigued/ sleepy during daytime? Has anyone observed you stop No 03/01/25 09:42 breathing during sleep? STOP Results Negative 03/01/25 09:42 QUESTION #5 FULL TEXT : Do you snore loudly (louder than talking or can be heard through closed doors)? Tobacco Use History Tobacco Use History - oceanography professor: Tobacco Use History - oceanography professor Tobacco Use Smoking Status Never smoker 03/01/25 09:42 Hx Tobacco Use No 03/01/25 09:42 Years Smoking Packs Smoked per Day Smoking Cessation Date was within the last 15 years Hx Smoking Cessation Date Hx Smoking Cessation Counseling Hematologic Medial History Hematologic Hx - oceanography professor: Hematologic Medical Hx - electronic news gathering editor Hx of Blood Transfusion No 03/01/25 09:42 Hx of Transfusion in last 3 No 03/01/25 09:42 Months Date of Last Transfusion (if within last 3 months) Ever experience any problems No 03/01/25 09:42 with transfusion(s)? Specify any problems Hx of Preganancy in last 3 No 03/01/25 09:42 Months Nurse Filling Out Transfusion DSCHRIBER 03/01/25 09:42 Questions: Date: 03/01/25 03/01/25 09:42 Time: 09:45 03/01/25 09:42 Patient unable to answer at this time (ie. confused, unrespo /Reproducti on History /Reproducti ve History - oceanography professor: /Reproducti ve Hx- oceanography professor Hx Now No 03/01/25 09:42 Gestational Age (in weeks): EDC: Hx Hx Para Hx Section SAB No 03/01/25 09:42 PFSH Medical History (Updated 03/01/25 @ 09:55 by Nicci Buckley) Post-menopausal Cancer Arthritis High cholesterol Back pain Gastric reflux Non-smoker Shortness of breath on exertion Leg cramps History of edema History of echocardiogram Cardiology follow-up encounter History of hiatal hernia Panic attacks MVP (mitral valve prolapse) Hypertriglyceridemia History of [place] (myocardial infarction) Diarrhea Aortic regurgitation Hypertension Home Medications ???Medication ???Instructions ???Recorded ???Last Taken ???Type cholecalciferol (vitamin D3) 50 2,000 unit PO QDAY 11/29/17 Unknow n History mcg (2,000 unit) capsule escitalopram oxalate 10 mg tablet 10 mg PO QDAY #90 tabs 11/29/17 U nknown Rx multivitamin 1 tab PO QAM 11/29/17 02/27/25 His tory omeprazole magnesium 20 mg 20 mg PO QDAY 11/29/17 Unknown His tory tablet,delayed release (Prilosec OTC) cyanocobalamin (vitamin B-12) 1,0 (more content not included)... Normal [facility] .Auto Diffon 02-25-2025 Basophil, Absolute 0.0 10 3/mcL Normal 0.0-0.3 [facility] Comment on above: Performed By: #### A BRUNO, CMP, CBC, GFR, ADIFF, LIPID ####[address] [address] Basophils/100 WBC (Bld) 0.5 % Normal 0.0-2.5 [facility] Comment on above: Performed By: #### A BRUNO, CMP, CBC, GFR, ADIFF, LIPID ####[address] [address] Eosinophil, Absolute 0.3 10 3/mcL Normal 0.0-0.7 [facility] Comment on above: Performed By: #### A BRUNO, CMP, CBC, GFR, ADIFF, LIPID ####[address] [address] Eosinophils/100 WBC (Bld) 5.3 % Normal 0.0-6.0 [facility] Comment on above: Performed By: #### A BRUNO, CMP, CBC, GFR, ADIFF, LIPID ####[address] [address] Lymphocyte, Absolute 1.5 10 3/mcL Normal 0.9-4.3 [facility] Comment on above: Performed By: #### A BRUNO, CMP, CBC, GFR, ADIFF, LIPID ####[address] [address] Lymphocytes/100 WBC (Bld) 23.5 % Normal 20.0-40.0 [facility] Comment on above: Performed By: #### A BRUNO, CMP, CBC, GFR, ADIFF, LIPID ####[facility] [place], [place] [address] Monocyte, Absolute 0.5 10 3/mcL Normal 0.1-1.4 [facility] Comment on above: Performed By: #### A BRUNO, CMP, CBC, GFR, ADIFF, LIPID ####[address] [address] Monocytes/100 WBC (Bld) 7.9 % Normal 2.0-13.0 [facility] Comment on above: Performed By: #### A BRUNO, CMP, CBC, GFR, ADIFF, LIPID ####[address] [address] Neutrophils/100 WBC (Bld) 62.8 % Normal 50.0-75.0 [facility] Comment on above: Performed By: #### A BRUNO, CMP, CBC, GFR, ADIFF, LIPID ####[place] [address] [place], [place] [address] .GFRon 02-25-2025 Estimated Glomerular Filtration Rate 61 ml/min/1.73sqm Normal [facility] Comment on above: Result Comment: Stages of Chronic Kidney Disease (CKD) Stage Description eGFR(ml/min/1.73 sq.m.) CKD 1 Normal kidney function or >=90 normal kindney function with possible kidney damage (ex. Proteinuria) CKD 2 Kidney damage with mild loss 60-89 of kidney function CKD 3a Mild to moderate loss of kidney 45-59 function CKD 3b Moderate to severe loss of 30-44 of kindey function CKD 4 Severe loss of kidney function 15-29 CKD 5 Kidney failure <15 Note: (go live 2024) the eGFR calculation was updated to the 2020 CKD-EPI creatinine equation without a race factor to calculate the eGFR results. Performed By: #### A BRUNO, CMP, CBC, GFR, ADIFF, LIPID ####[address] [place] [place], [place] [address] .NEUABSon 02-25-2025 Neutrophil, Absolute 3.9 10 3/mcL Normal 2.3-8.1 [facility] Comment on above: Performed By: #### A BRUNO, CMP, CBC, GFR, ADIFF, LIPID ####[address] [address] CBCon 02-25-2025 Erythrocyte distribution width (RBC) [Ratio] 15.3 % Normal 11.5-15.5 [facility] Comment on above: Performed By: #### A BRUNO, CMP, CBC, GFR, ADIFF, LIPID ####[place] [address] Hematocrit (Bld) [Volume fraction] 33.4 % Low 34.0-46.0 [facility] Comment on above: Performed By: #### A BRUNO, CMP, CBC, GFR, ADIFF, LIPID ####[place] [address] Hgb 11.3 G/dL Low 12.0-16.0 [facility] Comment on above: Performed By: #### A BRUNO, CMP, CBC, GFR, ADIFF, LIPID ####[place] [address] MCH (RBC) [Entitic mass] 28.5 pg Normal 27.0-33.0 [facility] Comment on above: Performed By: #### A BRUNO, CMP, CBC, GFR, ADIFF, LIPID ####[place] [address] MCHC 33.9 G/dL Normal 32.0-36.0 [facility] Comment on above: Performed By: #### A BRUNO, CMP, CBC, GFR, ADIFF, LIPID ####[place] [address] MCV (RBC) [Entitic vol] 83.9 fL Normal 80.0-99.0 [facility] Comment on above: Performed By: #### A BRUNO, CMP, CBC, GFR, ADIFF, LIPID ####[address] [address] Platelet 205 10 3/mcL Normal 150-450 [facility] Comment on above: Performed By: #### A BRUNO, CMP, CBC, GFR, ADIFF, LIPID ####[address] [place], [place] [address] Platelet mean volume (Bld) [Entitic vol] 9.2 fL Normal 6.6-10.5 [facility] Comment on above: Performed By: #### A BRUNO, CMP, CBC, GFR, ADIFF, LIPID ####[address] [place], [place] [address] RBC 3.98 10 6/mcL Low 4.10-5.30 [facility] Comment on above: Performed By: #### A BRUNO, CMP, CBC, GFR, ADIFF, LIPID ####[id number] [place], [place] [address] WBC 6.3 10 3/mcL Normal 4.5-10.8 [facility] Comment on above: Performed By: #### A BRUNO, CMP, CBC, GFR, ADIFF, LIPID ####[address] [place], [place] [address] CMPon 02-25-2025 Albumin Level 3.1 G/dL Low 3.4-4.8 [facility] Comment on above: Performed By: #### A BRUNO, CMP, CBC, GFR, ADIFF, LIPID ####[address] [place], [place] [address] Albumin/Globulin [Mass ratio] 0.8 {ratio} Low 1.1-2.5 [facility] Comment on above: Performed By: #### A BRUNO, CMP, CBC, GFR, ADIFF, LIPID ####[id number] [place], [place] [address] ALP [Catalytic activity/Vol] 57 U/L Normal 40-135 [facility] Comment on above: Performed By: #### A BRUNO, CMP, CBC, GFR, ADIFF, LIPID ####[facility] [place], [place] [address] ALT [Catalytic activity/Vol] 18 U/L Normal 14-59 [facility] Comment on above: Performed By: #### A BRUNO, CMP, CBC, GFR, ADIFF, LIPID ####[id number] [address] AST [Catalytic activity/Vol] 9 U/L Low 10-40 [facility] Comment on above: Performed By: #### A BRUNO, CMP, CBC, GFR, ADIFF, LIPID ####[address] [address] Bili Total 0.4 mg/dL Normal 0.2-1.0 [facility] Comment on above: Result Comment: Use of this assay is not recommended for patients undergoing treatment with eltrombopag due to the potential for falsely elevated results. Performed By: #### A BRUNO, CMP, CBC, GFR, ADIFF, LIPID ####[place] [address] BUN/Creatinine Ratio 13 ratio Normal 7-27 [facility] Comment on above: Performed By: #### A BRUNO, CMP, CBC, GFR, ADIFF, LIPID ####[address] [address] Calcium [Mass/Vol] 8.8 mg/dL Normal 8.4-10.2 [facility] Comment on above: Performed By: #### A BRUNO, CMP, CBC, GFR, ADIFF, LIPID ####[address] [address] Chloride [Moles/Vol] 103 mmol/L Normal 98-107 [facility] Comment on above: Performed By: #### A BRUNO, CMP, CBC, GFR, ADIFF, LIPID ####[address] [address] CO2 [Moles/Vol] 31 mmol/L Normal 23-31 [facility] Comment on above: Performed By: #### A BRUNO, CMP, CBC, GFR, ADIFF, LIPID ####[address] [address] Creatinine [Mass/Vol] 0.94 mg/dL Normal 0.51-0.95 [facility] Comment on above: Performed By: #### A BRUNO, CMP, CBC, GFR, ADIFF, LIPID ####[address] [place] [address] Electrolyte Balance 7.0 mEq/L Normal 4.0-15.0 [facility] Comment on above: Performed By: #### A BRUNO, CMP, CBC, GFR, ADIFF, LIPID ####[facility] [place], [place] [address] Globulin 3.7 G/dL Normal 2.7-4.4 [facility] Comment on above: Performed By: #### A BRUNO, CMP, CBC, GFR, ADIFF, LIPID ####[address] [place], [place] [address] Glucose [Mass/Vol] 97 mg/dL Normal 83-110 [facility] Comment on above: Performed By: #### A BRUNO, CMP, CBC, GFR, ADIFF, LIPID ####[address] [address] Potassium [Moles/Vol] 3.8 mmol/L Normal 3.5-5.1 [facility] Comment on above: Performed By: #### A BRUNO, CMP, CBC, GFR, ADIFF, LIPID ####[address] [address] Sodium [Moles/Vol] 141 mmol/L Normal 136-145 [facility] Comment on above: Performed By: #### A BRUNO, CMP, CBC, GFR, ADIFF, LIPID ####[place] [address] [place], [place] [address] Total Protein 6.8 G/dL Normal 6.4-8.2 [facility] Comment on above: Performed By: #### A BRUNO, CMP, CBC, GFR, ADIFF, LIPID ####[address] [address] Urea nitrogen [Mass/Vol] 12 mg/dL Normal 7-18 [facility] Comment on above: Performed By: #### A BRUNO, CMP, CBC, GFR, ADIFF, LIPID ####[id number] [place], [place] [address] LABORATORYOrdered By: SYSTEM SYSTEM on 09-15-2025 Albumin BCP dye [Mass/Vol] 3.1 G/dL Low 3.4 - 4.8 G/dL AO ADM SS Albumin/Globulin [Mass ratio] 0.8 {ratio} Low 1.1 - 2.5 ratio AO ADM SS ALP [Catalytic activity/Vol] 57 U/L Normal 40 - 135 U/L AO ADM SS ALT With P-5'-P [Catalytic activity/Vol] 18 U/L Normal 14 - 59 U/L AO ADM SS AST With P-5'-P [Catalytic activity/Vol] 9 U/L Low 10 - 40 U/L AO ADM SS Basophils (Bld) [#/Vol] 0.0 103/mcL Normal 0.0 - 0.3 10^3/mcL AO Workflow SS Basophils/100 WBC (Bld) 0.5 % Normal 0.0 - 2.5 % AO Workflow SS Bilirubin [Mass/Vol] 0.4 mg/dL Normal 0.2 - 1 .0 mg/dL AO ADM SS Comment on above: Interpretive Data: U se of this assay is not recommended for patients undergoing treatment with eltrombopag due to the potential for falsely elevated results. Calcium [Mass/Vol] 8.8 mg/dL Normal 8.4 - 10. 2 mg/dL AO ADM SS Chloride [Moles/Vol] 103 mmol/L Normal 98 - 10 7 mmol/L AO ADM SS CO2 [Moles/Vol] 31 mmol/L Normal 23 - 31 mmol/L AO ADM SS Creatinine [Mass/Vol] 0.94 mg/dL Normal 0.51 - 0.95 mg/dL AO ADM SS Electrolyte Balance 7.0 mEq/L Normal 4.0 - 15 .0 mEq/L AO ADM SS Eosinophil, Absolute 0.3 103/mcL Normal 0.0 - 0 .7 10^3/mcL AO Workflow SS Eosinophils/100 WBC (Bld) 5.3 % Normal 0.0 - 6.0 % AO Workflow SS Erythrocyte distribution width (RBC) [Ratio] 15.3 % Normal 11.5 - 15.5 % AO Workflow SS Estimated Glomerular Filtration Rate 61 ml/min/1.73sqm Invalid Interpretation Code AO Chemistry S Comment on above: Interpretive Data: Stages of Chronic Kidney Disease (CKD) Stage Description eGFR(ml/min/1.73 sq.m.) CKD 1 Normal kidney function or >=90 normal kindney function with possible kidney damage (ex. Proteinuria) CKD 2 Kidney damage with mild loss 60-89 of kidney function CKD 3a Mild to moderate loss of kidney 45-59 function CKD 3b Moderate to severe loss of 30-44 of kindey function CKD 4 Severe loss of kidney function 15-29 CKD 5 Kidney failure <15 Note: (go live 2024) the eGFR calculation was updated to the 2020 CKD-EPI creatinine equation without a race factor to calculate the eGFR results. Globulin 3.7 G/dL Normal 2.7 - 4.4 G/dL AO ADM SS Glucose [Mass/Vol] 97 mg/dL Normal 83 - 110 mg/dL AO ADM SS Hematocrit (Bld) [Volume fraction] 33.4 % Low 34.0 - 46.0 % AO Workflow SS Hemoglobin (Bld) [Mass/Vol] 11.3 G/dL Low 12.0 - 16.0 G/dL AO Workflow SS Lymphocytes (Bld) [#/Vol] 1.5 103/mcL Normal 0.9 - 4.3 10^3/mcL AO Workflow SS Lymphocytes/100 WBC (Bld) 23.5 % Normal 20.0 - 40.0 % AO Workflow SS MCH (RBC) [Entitic mass] 28.5 pg Normal 27.0 - 33.0 pg AO Workflow SS MCHC 33.9 G/dL Normal 32.0 - 36.0 G/dL AO Workflow SS MCV (RBC) [Entitic vol] 83.9 fL Normal 80.0 - 99.0 fL AO Workflow SS Monocytes (Bld) [#/Vol] 0.5 103/mcL Normal 0.1 - 1.4 10^3/mcL AO Workflow SS Monocytes/100 WBC (Bld) 7.9 % Normal 2.0 - 13.0 % AO Workflow SS Neutrophils (Bld) [#/Vol] 3.9 103/mcL Normal 2.3 - 8.1 10^3/mcL AO Workflow SS Neutrophils/100 WBC (Bld) 62.8 % Normal 50.0 - 75.0 % AO Workflow SS Platelet mean volume (Bld) [Entitic vol] 9.2 fL Normal 6.6 - 10.5 fL AO Workflow SS Platelets (Bld) [#/Vol] 205 103/mcL Normal 150 - 450 10^3/mcL AO Workflow SS Potassium [Moles/Vol] 3.8 mmol/L Normal 3.5 - 5.1 mmol/L AO ADM SS Protein [Mass/Vol] 6.8 G/dL Normal 6.4 - 8.2 G/dL AO ADM SS RBC (Bld) [#/Vol] 3.98 106/mcL Low 4.10 - 5.3 0 10^6/mcL AO Workflow SS Sodium [Moles/Vol] 141 mmol/L Normal 136 - 145 mmol/L AO ADM SS Urea nitrogen [Mass/Vol] 12 mg/dL Normal 7 - 18 mg/dL AO ADM SS Urea nitrogen/Creatinine [Mass ratio] 13 ratio Normal 7 - 27 ratio AO ADM SS WBC (Bld) [#/Vol] 6.3 103/mcL Normal 4.5 - 10.8 10^3/mcL AO Workflow SS LABORATORYOrdered By: Rafael Alba on 02-25-2025 Cholesterol [Mass/Vol] 107 mg/dL Normal 0 - 200 mg/dL AO ADM SS Comment on above: Interpretive Data: C holesterol Reference Interval: Less than 200 Desirable 200-239 Borderline high risk 240 and above High risk Cholesterol in HDL [Mass/Vol] 42 mg/dL Normal 40 - 60 mg/dL AO ADM SS Cholesterol in LDL [Mass/Vol] 40 mg/dL Normal 0 - 130 mg/dL AO ADM SS Triglyceride [Mass/Vol] 126 mg/dL Normal 0 - 150 mg/dL AO ADM SS Comment on above: Interpretive Data: T riglyceride Reference Interval: Less than 150 Normal 150-199 Borderline high risk 200-499 High risk 500 or higher Very high risk LIPIDon 02-25-2025 Cholesterol [Mass/Vol] 107 mg/dL Normal 0-200 [facility] Comment on above: Result Comment: Chol esterol Reference Interval: Less than 200 Desirable 200-239 Borderline high risk 240 and above High risk Performed By: #### A BRUNO, CMP, CBC, GFR, ADIFF, LIPID ####[address] [place], [place] [address] Cholesterol in HDL [Mass/Vol] 42 mg/dL Normal 40-60 [facility] Comment on above: Performed By: #### A BRUNO, CMP, CBC, GFR, ADIFF, LIPID ####[address] [place], [place] [address] Cholesterol in LDL [Mass/Vol] 40 mg/dL Normal 0-130 [facility] Comment on above: Performed By: #### A BRUNO, CMP, CBC, GFR, ADIFF, LIPID ####[id number] [place], [place] [address] Triglyceride [Mass/Vol] 126 mg/dL Normal 0-150 [facility] Comment on above: Result Comment: Trig lyceride Reference Interval: Less than 150 Normal 150-199 Borderline high risk 200-499 High risk 500 or higher Very high risk Performed By: #### A BRUNO, CMP, CBC, GFR, ADIFF, LIPID ####[address] [place], [place] [address] Gastroenterology Visit Repor ton 01-28-2025 Gastroenterology Visit Report [facility] [address] [place] [address] OFFICE VISIT Date of Service: 01/28/25 MR#: [id number] Acct: [id number] Name: ERMA MIGUEL Rep #: [id number] : 1945 Provider: DAWSON silva Age/Sex: 79/F Location: [facility] [place] Status: Signed Intake Vital Signs 11/29/17 13:15 01/28/25 14:54 Height 5 ft 5 ft Weight: 136 lb 4 oz BMI 26.6 BP 138/76 H Respiration 16 Pulse 46 L Temp 97.2 F L Temp Source Temporal Pulse Oximetry (%) 96 Oxygen Delivery Method room air Intake Visit Reasons: unintentional wt loss diarrhea abd pain Chief Complaint: weight loss, diarrhea, abdominal pain Allergies acetaminophen (From Percocet) Allergy (Severe, Verified 01/28/25 14:52) Unknown nitrofurantoin (From Macrobid) Allergy (Severe, Verified 01/28/25 14:52) swelling oxycodone (From Percocet) Allergy (Severe, Verified 01/28/25 14:52) Unknown penicillin G Allergy (Severe, Verified 01/28/25 14:52) unknown Sulfa (Sulfonamide Antibiotics) Allergy (Severe, Verified 01/28/25 14:52) unknown phenylpropanolamine (From Entex [place]) Allergy (Mild, Verified 01/28/25 14:52) Other guaifenesin Allergy (Verified 01/28/25 14:52) NEEDS FOLLOW-UP phenylephrine Allergy (Verified 01/28/25 14:52) NEEDS FOLLOW-UP atorvastatin Adverse Reaction (Mild, Verified 01/28/25 14:52) muscle pain Medications ???Medication ???Instructions ???Recorded ???Confirmed ???Type cholecalciferol (vitamin D3) 50 2,000 unit PO QDAY 11/29/17 History mcg (2,000 unit) capsule escitalopram oxalate 10 mg tablet 10 mg PO QDAY #90 tabs 11/29/17 0 01/28/25 Rx multivitamin 1 tab PO QAM 11/29/17 01/28/25 His tory omeprazole magnesium 20 mg 20 mg PO QDAY 11/29/17 01/28/25 Hi story tablet,delayed release (Prilosec OTC) cholestyramine 4 gram oral powder 2 g PO BID #30 ea 01/28/25 Rx for suspension in a packet (Cholestyramine Light) clopidogrel 75 mg tablet (Plavix) 75 mg PO QDAY 01/28/25 01/28/25 H istory cyanocobalamin (vitamin B-12) 1,000 mcg PO QDAY 01/28/25 5 History 1,000 mcg capsule flaxseed oil 1,000 mg capsule 1,000 mg PO TID 01/28/25 01/28/25 History glucosamine-chondroi tin 250 mg-200 2 tab PO QPC 01/28/25 01/28/25 H istory mg tablet hydralazine 50 cap PO 01/28/25 01/28/25 History mg-hydrochlorothiazi de 50 mg capsule peg 3350-sod sulf,[id number] See Rx Instructions PO .COMPLEX #2 01/28/25 01/28/25 Rx 178.7-7.3-0.5-1.12-0 .9 gram oral mL soln (Suflave) potassium chloride 8 mEq 8 meq PO QDAY 01/28/25 01/28/25 Hi story capsule,extended release rosuvastatin 40 mg tablet 40 mg PO QDAY 01/28/25 01/28/25 Hi story Have you fallen in the past year?: No PFSH Medical History (Updated 01/28/25 @ 15:24 by DAWSON Cardoso) Panic attacks Osteoarthritis of knees, bilateral MVP (mitral valve prolapse) IBS (irritable bowel syndrome) Hypertriglyceridemia History of [place] (myocardial infarction) Diarrhea Chronic GERD Aortic regurgitation CAD in [place] artery Anemia Anxiety Hypertension Surgical History History of cholecystectomy History of colonoscopy Family History Father Cancer leukemia Mother Heart disease Social History Smoking Status: Never smoker alcohol intake: never substance use type: does not use what type of physical activity do you participate in: walking and bicycling frequency: 3-4 times per week HPI HPI Chief Complaint: weight loss, diarrhea, abdominal pain Details: Labs 09/18/2024 HGB 11, PLT 204 - pretzel, water, and toast the past toast - aching abdominal pain and diarrhea after meals - 6lb weight loss in the past 10 days - diarrhea is after eating - denies any h/o pancreatitis - denies any ATB or travel - denies any well water - denies any bleeding - 2-4x a day depending on how much she has eaten - c/o fecal incontinence - denies any Imodium in the past week - nausea, denies any emesis, resolves after a BM - probiotic x6 weeks no change in symptoms - Plavix h/o [place] - CCX 15-20 years ago - reports she was not aware CCX could result in diarrhea - denies any nocturnal stools - seen in office today with her The patient is an 79-year-old female presenting with gastrointestinal symptoms, primarily chronic diarrhea. The patient reports experiencing diarrhea after meals for the past 20 years, which has worsened in frequency and urgency over the last five years. Despite attempts to identify food triggers, she has been unable to connect diarrhea to specific dietary factors. The episodes consist of (more content not included)... Normal [facility] .Auto Diffon 09-18-2024 Basophil, Absolute 0.0 10 3/mcL Normal 0.0-0.3 [facility] Comment on above: Performed By: #### M G, ADIFF, CBC, GFR, ANEU, BMP #### [address] [address] Basophils/100 WBC (Bld) 0.5 % Normal 0.0-2.5 [facility] Comment on above: Performed By: #### M G, ADIFF, CBC, GFR, ANEU, BMP #### [address] [address] Eosinophil, Absolute 0.2 10 3/mcL Normal 0.0-0.7 [facility] Comment on above: Performed By: #### M G, ADIFF, CBC, GFR, ANEU, BMP #### [address] [address] Eosinophils/100 WBC (Bld) 2.7 % Normal 0.0-6.0 [facility] Comment on above: Performed By: #### M G, ADIFF, CBC, GFR, ANEU, BMP #### [address] [address] Lymphocyte, Absolute 1.4 10 3/mcL Normal 0.9-4.3 [facility] Comment on above: Performed By: #### M G, ADIFF, CBC, GFR, ANEU, BMP #### [address] [address] Lymphocytes/100 WBC (Bld) 22.5 % Normal 20.0-40.0 [facility] Comment on above: Performed By: #### M G, ADIFF, CBC, GFR, ANEU, BMP #### [address] [address] Monocyte, Absolute 0.5 10 3/mcL Normal 0.1-1.4 [facility] Comment on above: Performed By: #### M G, ADIFF, CBC, GFR, ANEU, BMP #### [address] [address] Monocytes/100 WBC (Bld) 8.8 % Normal 2.0-13.0 [facility] Comment on above: Performed By: #### M G, ADIFF, CBC, GFR, ANEU, BMP #### [place] [place], [place] [address] Neutrophils/100 WBC (Bld) 65.5 % Normal 50.0-75.0 [facility] Comment on above: Performed By: #### M G, ADIFF, CBC, GFR, ANEU, BMP #### [place] [place], [place] [address] .GFRon 09-18-2024 Estimated Glomerular Filtration Rate 59 ml/min/1.73sqm Normal [facility] Comment on above: Result Comment: Stages of Chronic Kidney Disease (CKD) Stage Description eGFR(ml/min/1.73 sq.m.) CKD 1 Normal kidney function or >=90 normal kindney function with possible kidney damage (ex. Proteinuria) CKD 2 Kidney damage with mild loss 60-89 of kidney function CKD 3a Mild to moderate loss of kidney 45-59 function CKD 3b Moderate to severe loss of 30-44 of kindey function CKD 4 Severe loss of kidney function 15-29 CKD 5 Kidney failure <15 Note: (go live 2024) the eGFR calculation was updated to the 2020 CKD-EPI creatinine equation without a race factor to calculate the eGFR results. Performed By: #### M G, ADIFF, CBC, GFR, ANEU, BMP ####[address] [address] .NEUABSon 09-18-2024 Neutrophil, Absolute 4.0 10 3/mcL Normal 2.3-8.1 [facility] Comment on above: Performed By: #### M G, ADIFF, CBC, GFR, ANEU, BMP #### [place] [address] [place], [place] [address] BMPon 09-18-2024 BUN/Creatinine Ratio 18 ratio Normal 7-27 [facility] Comment on above: Order Comment: Hemol yzed and clotted Please redraw SKS Performed By: #### M G, ADIFF, CBC, GFR, ANEU, BMP #### [place] [address] [place], [place] [address] Calcium [Mass/Vol] 8.7 mg/dL Normal 8.4-10.2 [facility] Comment on above: Order Comment: Hemol yzed and clotted Please redraw SKS Performed By: #### M G, ADIFF, CBC, GFR, ANEU, BMP #### [address] [address] Chloride [Moles/Vol] 104 mmol/L Normal 98-107 [facility] Comment on above: Order Comment: Hemol yzed and clotted Please redraw SKS Performed By: #### M G, ADIFF, CBC, GFR, ANEU, BMP #### [address] [address] CO2 [Moles/Vol] 31 mmol/L Normal 23-31 [facility] Comment on above: Order Comment: Hemol yzed and clotted Please redraw SKS Performed By: #### M G, ADIFF, CBC, GFR, ANEU, BMP #### [place] [address] Creatinine [Mass/Vol] 0.96 mg/dL Normal 0.55-1.02 [facility] Comment on above: Order Comment: Hemol yzed and clotted Please redraw SKS Result Comment: Test ing performed on Siemens Dimension EXL analyzer using a modified kinetic Alan technique. Performed By: #### M G, ADIFF, CBC, GFR, ANEU, BMP #### [place] [address] Electrolyte Balance 6.0 mEq/L Normal 4.0-15.0 [facility] Comment on above: Order Comment: Hemol yzed and clotted Please redraw SKS Performed By: #### M G, ADIFF, CBC, GFR, ANEU, BMP #### [place] [address] Glucose [Mass/Vol] 118 mg/dL High 83-110 [facility] Comment on above: Order Comment: Hemol yzed and clotted Please redraw SKS Performed By: #### M G, ADIFF, CBC, GFR, ANEU, BMP #### [place] [address] Potassium [Moles/Vol] 3.7 mmol/L Normal 3.5-5.1 [facility] Comment on above: Order Comment: Hemol yzed and clotted Please redraw SKS Performed By: #### M G, ADIFF, CBC, GFR, ANEU, BMP #### [address] [address] Sodium [Moles/Vol] 141 mmol/L Normal 136-145 [facility] Comment on above: Order Comment: Hemol yzed and clotted Please redraw SKS Performed By: #### M G, ADIFF, CBC, GFR, ANEU, BMP #### [address] [address] Urea nitrogen [Mass/Vol] 17 mg/dL Normal 7-18 [facility] Comment on above: Order Comment: Hemol yzed and clotted Please redraw SKS Performed By: #### M G, ADIFF, CBC, GFR, ANEU, BMP #### [address] [address] CBCon 09-18-2024 Erythrocyte distribution width (RBC) [Ratio] 16.4 % High 11.5-15.5 [facility] Comment on above: Performed By: #### M G, ADIFF, CBC, GFR, ANEU, BMP #### [address] [address] Hematocrit (Bld) [Volume fraction] 33.3 % Low 34.0-46.0 [facility] Comment on above: Performed By: #### M G, ADIFF, CBC, GFR, ANEU, BMP #### [address] [address] Hgb 11.0 G/dL Low 12.0-16.0 [facility] Comment on above: Performed By: #### M G, ADIFF, CBC, GFR, ANEU, BMP #### [address] [address] MCH (RBC) [Entitic mass] 26.5 pg Low 27.0-33.0 [facility] Comment on above: Performed By: #### M G, ADIFF, CBC, GFR, ANEU, BMP #### [address] [address] MCHC 33.0 G/dL Normal 32.0-36.0 [facility] Comment on above: Performed By: #### M G, ADIFF, CBC, GFR, ANEU, BMP #### [address] [address] MCV (RBC) [Entitic vol] 80.4 fL Normal 80.0-99.0 [facility] Comment on above: Performed By: #### M G, ADIFF, CBC, GFR, ANEU, BMP #### [address] [address] Platelet 204 10 3/mcL Normal 150-450 [facility] Comment on above: Performed By: #### Ragini G, ADIFF, CBC, GFR, ANEU, BMP #### [address] [address] Platelet mean volume (Bld) [Entitic vol] 8.1 fL Normal 6.6-10.5 [facility] Comment on above: Performed By: #### M Reynaldo, ADIFF, CBC, GFR, ANEU, BMP #### [address] [address] RBC 4.14 10 6/mcL Normal 4.10-5.30 [facility] Comment on above: Performed By: #### Ragini G, ADIFF, CBC, GFR, ANEU, BMP #### [address] [address] WBC 6.0 10 3/mcL Normal 4.5-10.8 [facility] Comment on above: Performed By: #### M G, ADIFF, CBC, GFR, ANEU, BMP #### [address] [address] MGon 09-18-2024 Magnesium [Mass/Vol] 1.7 mg/dL Low 1.8-2.4 [facility] Comment on above: Performed By: #### M G, ADIFF, CBC, GFR, ANEU, BMP #### [address] [place], [place] [address] NM MYOCARDIAL SPECT STRESS/R ESTon 09-18-2024 NM MYOCARDIAL SPECT STRESS/REST ORIGINAL NM MYOCARDIAL SPECT STRESS/REST CLINICAL STATEMENT: cp TECHNIQUE: Lexiscan dose:0.4 mg Radiopharmaceutical (stress): Tc-99m Sestamibi Dose:32.6 mCi Radiopharmaceutical (rest): Tc-99m Sestamibi Dose:10.7 mCi SPECT acquisition and processing Reconstruction and reorientation of SPECT images into short axis, vertical and horizontal long axis planes Quantitative LVEF assessment COMPARISON:None REPORT:Overall, image quality is good. Rotating planar images show no significant patient motion. SPECT perfusion images during rest and stress show homogenous radiotracer uptake. No defects to suggest ischemia or infarction. SSS is 0. GATED SPECT images show normal LV size and function. LVEF calculated at 67%. IMPRESSION: 1. No evidence for ischemia. 2. No evidence of infarction. 3. Normal LV size and function. 4. No previous for comparison. Interpreted By: Jose Browne Preliminary Report By: Jose Browne Electronically Signed By: Jose Browne Dictated Date: 09/18/2024 12:33:35 PM Prelim Date: 09/18/2024 12:33:35 PM Sign Date: 09/18/2024 12:35:44 PM Ordering Provider:Cierra Chao [facility] .Auto Diffon 09-17-2024 Basophil, Absolute 0.1 10 3/mcL Normal 0.0-0.3 [facility] Comment on above: Order Comment: Clott ed needs redrawn CBC Performed By: #### A DIFF, MG, BMP, ANEU, CBC, TROPHS, GFR, W ####[address] [place], [place] [address] Basophils/100 WBC (Bld) 1.1 % Normal 0.0-2.5 [facility] Comment on above: Order Comment: Clott ed needs redrawn CBC Performed By: #### A DIFF, MG, BMP, ANEU, CBC, TROPHS, GFR, MDW ####[address] [place], [place] [address] Eosinophil, Absolute 0.1 10 3/mcL Normal 0.0-0.7 [facility] Comment on above: Order Comment: Clott ed needs redrawn CBC Performed By: #### A DIFF, MG, BMP, ANEU, CBC, TROPHS, GFR, W ####[address] [place], [place] [address] Eosinophils/100 WBC (Bld) 2.1 % Normal 0.0-6.0 [facility] Comment on above: Order Comment: Clott ed needs redrawn CBC Performed By: #### A DIFF, MG, BMP, ANEU, CBC, TROPHS, GFR, W ####[address] [place], [place] [address] Lymphocyte, Absolute 1.7 10 3/mcL Normal 0.9-4.3 [facility] Comment on above: Order Comment: Clott ed needs redrawn CBC Performed By: #### A DIFF, MG, BMP, ANEU, CBC, TROPHS, GFR, ASHLEY ####[address] [place], [place] [address] Lymphocytes/100 WBC (Bld) 27.0 % Normal 20.0-40.0 [facility] Comment on above: Order Comment: Clott ed needs redrawn CBC Performed By: #### A DIFF, MG, BMP, ANEU, CBC, TROPHS, GFR, ASHLEY ####[address] [place], [place] [address] Monocyte, Absolute 0.4 10 3/mcL Normal 0.1-1.4 [facility] Comment on above: Order Comment: Clott ed needs redrawn CBC Performed By: #### A DIFF, MG, BMP, ANEU, CBC, TROPHS, GFR, W ####[address] [place], [place] [address] Monocytes/100 WBC (Bld) 6.3 % Normal 2.0-13.0 [facility] Comment on above: Order Comment: Clott ed needs redrawn CBC Performed By: #### A DIFF, MG, BMP, ANEU, CBC, TROPHS, GFR, MDW ####[place] [address] [place], [place] [address] Neutrophils/100 WBC (Bld) 63.5 % Normal 50.0-75.0 [facility] Comment on above: Order Comment: Clott ed needs redrawn CBC Performed By: #### A DIFF, MG, BMP, ANEU, CBC, TROPHS, GFR, MDW ####[address] [place], [place] [address] .GFRon 09-17-2024 Estimated Glomerular Filtration Rate 52 ml/min/1.73sqm Normal [facility] Comment on above: Result Comment: Stages of Chronic Kidney Disease (CKD) Stage Description eGFR(ml/min/1.73 sq.m.) CKD 1 Normal kidney function or >=90 normal kindney function with possible kidney damage (ex. Proteinuria) CKD 2 Kidney damage with mild loss 60-89 of kidney function CKD 3a Mild to moderate loss of kidney 45-59 function CKD 3b Moderate to severe loss of 30-44 of kindey function CKD 4 Severe loss of kidney function 15-29 CKD 5 Kidney failure <15 Note: (go live 2024) the eGFR calculation was updated to the 2020 CKD-EPI creatinine equation without a race factor to calculate the eGFR results. Performed By: #### A DIFF, MG, BMP, ANEU, CBC, TROPHS, GFR, MDW ####[place] [address] [place], [place] [address] .MDWon 09-17-2024 Monocyte Distribution Width 19.74 Normal 0.00-20.00 [facility] Comment on above: Result Comment: For ED adult patients suspected of sepsis, MDW<=20.0 does not rule out sepsis or risk of sepsis Performed By: #### A DIFF, MG, BMP, ANEU, CBC, TROPHS, GFR, MDW ####[place] [address] [place], [place] [address] .NEUABSon 09-17-2024 Neutrophil, Absolute 4.1 10 3/mcL Normal 2.3-8.1 [facility] Comment on above: Performed By: #### A DIFF, MG, BMP, ANEU, CBC, TROPHS, GFR, MDW ####[place] [address] [place], [place] [address] BMPon 09-17-2024 BUN/Creatinine Ratio 20 ratio Normal 7-27 [facility] Comment on above: Performed By: #### A DIFF, MG, BMP, ANEU, CBC, TROPHS, GFR, W ####[address] [address] Calcium [Mass/Vol] 9.3 mg/dL Normal 8.4-10.2 [facility] Comment on above: Performed By: #### A DIFF, MG, BMP, ANEU, CBC, TROPHS, GFR, W ####[place] [address] [address] Chloride [Moles/Vol] 102 mmol/L Normal 98-107 [facility] Comment on above: Performed By: #### A DIFF, MG, BMP, ANEU, CBC, TROPHS, GFR, ASHLEY ####[place] [address] [address] CO2 [Moles/Vol] 30 mmol/L Normal 23-31 [facility] Comment on above: Performed By: #### A DIFF, MG, BMP, ANEU, CBC, TROPHS, GFR, W ####[place] [address] [address] Creatinine [Mass/Vol] 1.08 mg/dL High 0.55-1.02 [facility] Comment on above: Result Comment: Test ing performed on [email or web address] Dimension EXL analyzer using a modified kinetic Alan technique. Performed By: #### A DIFF, MG, BMP, ANEU, CBC, TROPHS, GFR, W ####[address] [place] [id number] Electrolyte Balance 8.0 mEq/L Normal 4.0-15.0 [facility] Comment on above: Performed By: #### A DIFF, MG, BMP, ANEU, CBC, TROPHS, GFR, W ####[address] [address] [place], [place] [address] Glucose [Mass/Vol] 108 mg/dL Normal 83-110 [facility] Comment on above: Performed By: #### A DIFF, MG, BMP, ANEU, CBC, TROPHS, GFR, ASHLEY ####[address] [place], [place] [address] Potassium [Moles/Vol] 3.6 mmol/L Normal 3.5-5.1 [facility] Comment on above: Performed By: #### A DIFF, MG, BMP, ANEU, CBC, TROPHS, GFR, W ####[address] [place], [place] [address] Sodium [Moles/Vol] 140 mmol/L Normal 136-145 [facility] Comment on above: Performed By: #### A DIFF, MG, BMP, ANEU, CBC, TROPHS, GFR, ASHLEY ####[address] [place], [place] [address] Urea nitrogen [Mass/Vol] 22 mg/dL High 7-18 [facility] Comment on above: Performed By: #### A DIFF, MG, BMP, ANEU, CBC, TROPHS, GFR, ASHLEY ####[address] [place], [place] [address] CBCon 09-17-2024 Erythrocyte distribution width (RBC) [Ratio] 16.2 % High 11.5-15.5 [facility] Comment on above: Performed By: #### A DIFF, MG, BMP, ANEU, CBC, TROPHS, GFR, ASHLEY ####[address] [place], [place] [address] Hematocrit (Bld) [Volume fraction] 35.1 % Normal 34.0-46.0 [facility] Comment on above: Performed By: #### A DIFF, MG, BMP, ANEU, CBC, TROPHS, GFR, ASHLEY ####[address] [place], [place] [address] Hgb 11.7 G/dL Low 12.0-16.0 [facility] Comment on above: Performed By: #### A DIFF, MG, BMP, ANEU, CBC, TROPHS, GFR, ASHLEY ####[address] [place], [place] [address] MCH (RBC) [Entitic mass] 26.6 pg Low 27.0-33.0 [facility] Comment on above: Performed By: #### A DIFF, MG, BMP, ANEU, CBC, TROPHS, GFR, ASHLEY ####[address] [place], [place] [address] MCHC 33.5 G/dL Normal 32.0-36.0 [facility] Comment on above: Performed By: #### A DIFF, MG, BMP, ANEU, CBC, TROPHS, GFR, ASHLEY ####[address] [place], [place] [address] MCV (RBC) [Entitic vol] 79.4 fL Low 80.0-99.0 [facility] Comment on above: Performed By: #### A DIFF, MG, BMP, ANEU, CBC, TROPHS, GFR, ASHLEY ####[address] [place], [place] [address] Platelet 210 10 3/mcL Normal 150-450 [facility] Comment on above: Performed By: #### A DIFF, MG, BMP, ANEU, CBC, TROPHS, GFR, ASHLEY ####[address] [place], [place] [address] Platelet mean volume (Bld) [Entitic vol] 8.0 fL Normal 6.6-10.5 [facility] Comment on above: Performed By: #### A DIFF, MG, BMP, ANEU, CBC, TROPHS, GFR, ASHLEY ####[address] [place], [place] [address] RBC 4.42 10 6/mcL Normal 4.10-5.30 [facility] Comment on above: Performed By: #### A DIFF, MG, BMP, ANEU, CBC, TROPHS, GFR, ASHLEY ####[address] [place], [place] [address] WBC 6.4 10 3/mcL Normal 4.5-10.8 [facility] Comment on above: Performed By: #### A DIFF, MG, BMP, ANEU, CBC, TROPHS, GFR, MDW ####[facility] [place], [place] [address] CT ANGIOGRAPHY CHEST W/CONTR Jana 09-17-2024 CT ANGIOGRAPHY CHEST W/CONTRAST ORIGINAL EXAMINATION: CTA OF THE CHEST 09/17/2024 3:56 pm TECHNIQUE: CTA of the chest was performed after the administration of intravenous contrast. Multiplanar reformatted images are provided for review. MIP images are provided for review. Automated exposure control, iterative reconstruction, and/or weight based adjustment of the mA/kV was utilized to reduce the radiation dose to as low as reasonably achievable. COMPARISON: None. HISTORY: ORDERING SYSTEM PROVIDED HISTORY: Reason for Exam: difficulty breathing; suspect PE FINDINGS: Pulmonary Arteries: Pulmonary arteries are adequately opacified for evaluation. No evidence of intraluminal filling defect to suggest pulmonary embolism. Main pulmonary artery is normal in caliber. Mediastinum: No evidence of mediastinal lymphadenopathy. The heart and pericardium demonstrate no acute abnormality. There is no acute abnormality of the thoracic aorta. Advanced calcification of multiple coronary arteries is appreciated. Lungs/pleura: The lungs are without acute process. No focal consolidation or pulmonary edema. No evidence of pleural effusion or pneumothorax. Upper Abdomen: Limited images of the upper abdomen demonstrate prior cholecystectomy and extensive calcification of the splenic artery. No acute process is seen. Soft Tissues/Bones: No acute bone or soft tissue abnormality. IMPRESSION: No evidence of pulmonary embolism or other acute cardiopulmonary process. Interpreted by: David Smallwood DO Preliminary Report By: David Smallwood DO Electronically signed By David Smallwood DO Dictated Date: 09/17/2024 4:00:23 PM Prelim Date: 09/17/2024 4:03:39 PM Sign Date: 09/17/2024 4:03:39 PM Ordering Provider: MARSHA Chao [facility] DIMERon 09-17-2024 D-Dimer 419 ng/mL D-DU High 0-230 [facility] Comment on above: Order Comment: Short draw; [employer] notified 09/17/2024 12:40:27 EDT EH Result Comment: Resu lts reported in D-DU ng/mL. Positive for D-dimer. A positive D-Dimer may occur in the following: DVT, PE, DIC, Trauma, Cancer, Sepsis, , Rheumatoid arthritis, Myocardial infarction and Cirrhosis. The presence of Rheumatoid Factor and HAMA (human mouse antibody) produces an overestimation of test results. The result of the D-Dimer test should be evaluated in the context of all the clinical and laboratory data available. In those instances where the laboratory result does not agree with the clinical evaluation, additional tests should be performed accordingly. If the D-Dimer result is used to exclude DVT or PE, the recommended cutoff value is less than 230 ng/mL. The D-Dimer result should not be used alone to rule in DVT/PE, but should be used in conjunction with a clinical pretest probability (PTP)assessment model to exclude venous thromboembolism (VTE) in patients suspected of deep venous thrombosis (DVT) and pulmonary embolism (PE). Performed By: #### D GODFREY ####[address] [place], [place] [address] MGon 09-17-2024 Magnesium [Mass/Vol] 1.5 mg/dL Low 1.8-2.4 [facility] Comment on above: Performed By: #### A DIFF, MG, BMP, ANEU, CBC, TROPHS, GFR, MDW ####[address] [place], [place] [address] TROPHSon 09-17-2024 High Sensitivity Troponin I 25 ng/L Normal 0-51 [facility] Comment on above: Result Comment: High Sensitive Troponin I Reference Ranges: Female: 0-51 ng/L Male: 0-76 ng/L Testing performed on [employer]scal[employer] using a homogeneous sandwich chemiluminescent immunoassay based on [employer] technology. Performed By: #### T JAROD ####[address] [place], [place] [address] High Sensitivity Troponin I 14 ng/L Normal 0-51 [facility] Comment on above: Result Comment: High Sensitive Troponin I Reference Ranges: Female: 0-51 ng/L Male: 0-76 ng/L Testing performed on [employer] using a homogeneous sandwich chemiluminescent immunoassay based on [employer] technology. Performed By: #### T JAROD #### [address] [place], [place] [address] High Sensitivity Troponin I 10 ng/L Normal 0-51 [facility] Comment on above: Result Comment: High Sensitive Troponin I Reference Ranges: Female: 0-51 ng/L Male: 0-76 ng/L Testing performed on Dimension EXL using a homogeneous sandwich chemiluminescent immunoassay based on [employer] technology. Performed By: #### A DIFF, MG, BMP, ANEU, CBC, TROPHS, GFR, MDW ####[facility] [place], [place] [address] XR CHEST 1 VIEWon 09-17-2024 XR CHEST 1 VIEW ORIGINAL EXAMINATION: ONE XRAY VIEW OF THE CHEST 09/17/2024 1:03 pm COMPARISON: 05/28/2016 HISTORY: ORDERING SYSTEM PROVIDED HISTORY: Reason for Exam: chest pain FINDINGS: Cardiac silhouette is stable. Calcifications in the region of the aortic arch. Coronary stents. No overt edema. No focal consolidation. Costophrenic angles are sharp. No pneumothorax. No acute osseous abnormality. IMPRESSION: No acute cardiopulmonary process. Interpreted by: Laura Steen Preliminary Report By: Laura Steen Electronically signed By Laura Steen Dictated Date: 09/17/2024 1:08:29 PM Prelim Date: 09/17/2024 1:09:21 PM Sign Date: 09/17/2024 1:09:21 PM Ordering Provider: MARSHA Chao [facility] MA MAMMOGRAM SCREENING BILAT ERAL W/TOMOon 04-09-2024 MA MAMMOGRAM SCREENING BILATERAL W/RAYA ORIGINAL FROM: [address] [address] PROCEDURE FOR: ERMA MIGUEL [address] [place] [id number] Home: PID#: [id number] Exam#: [id number] : 1945 Age: 79 TO: MADISON RUIZ APRN, CNP [place], [place] [address] EXAMINATION: SCREENING DIGITAL BILATERAL MAMMOGRAM WITH TOMOSYNTHESIS, 03/27/2024 1:51 pm TECHNIQUE: Screening mammography of the bilateral breasts was performed with tomosynthesis. 2D standard and 3D tomosynthesis combination imaging performed through both breasts in the MLO and CC projection. Computer aided detection was utilized in the interpretation of this exam. COMPARISON: 05/17/2016, 05/06/2015 HISTORY: Breast cancer screening. FINDINGS: BREAST DENSITY: There are scattered areas of fibroglandular density. Benign secretory calcifications are present in both breasts. There are no significant masses or calcifications. IMPRESSION: No mammographic evidence of malignancy. Continued screening with annual mammograms is recommended. Lorri Simpson risk calculations, generated with the history provided, report this patient's lifetime risk for developing breast cancer at 1.1%. Based on this assessment tool, if the patient's calculated lifetime risk is below 20%, then the patient is considered at average risk for developing breast cancer. If the patient's calculated lifetime risk is at or above 20%, then the patient is considered high risk for developing breast cancer and may be a candidate for supplemental breast MRI screening in addition to annual mammographic screening per the [employer] [employer]. BIRADS: BI-RADS: 2: Benign RECALL: 1 year screening RECALL TYPE: mammo LETTER SENT: Normal BI-RADS 1 and 2 Interpreted by: Dennys Taylor MD Preliminary Report By: Dennys Taylor MD Electronically signed By Dennys Taylor MD Dictated Date: 04/09/2024 6:15:42 PM Prelim Date: 04/09/2024 7:15:11 PM Sign Date: 04/09/2024 7:15:11 PM Ordering Provider: MADISON RUIZ [employer] Developer: NORBERT GALLO RT(R)(M)(CT) letter sent: Normal BI-RADS 1 and 2 Mammogram BI-RADS: 2 Benign Normal [facility] BD [facility] BD BONE DENSITY DEXA AXIAL [place] ORIGINAL EXAMINATION: BONE DENSITOMETRY 03/27/2024 2:31 pm TECHNIQUE: A bone density dual x-ray absorptiometry (DEXA) scan was performed of the axial (e.g. hips, spine) and/or appendicular (e.g. radius) skeleton as appropriate. COMPARISON: 06/22/2013 HISTORY: ORDERING SYSTEM PROVIDED HISTORY: Reason for Exam: Osteoporosis Screening FINDINGS: T Score Left Femoral Neck: -2.3 Left Femoral Neck: 0.598 (g/cm2) T Score Left Hip: -1.9 Left Hip: 0.704 (g/cm2) T Score Lumbar Spine: -1.4 Lumbar Spine: 0.897 (g/cmd2) BMD change from previous lumbar Spine: 9.8% BMD change from previous hip:-5.5% FRAX: 10 year fracture risk assessment Major osteoporotic fracture: 31% Hip fracture: 21% IMPRESSION: Osteopenia by WHO criteria. World Health Organization criteria: (Comparing with young normal sex matched population) - Normal: T-score at or above -1 SD (standard deviation) - Osteopenia: T-score between -1 and -2.5 SD - Osteoporosis: T-score at or below -2.5 SD The NOF recommends that FDA-approved medical therapies be considered in post-menopausal women and men age >/= 50 years with a: * Hip or vertebral fracture, or * T-score of /= 20% for major osteoporotic fractures or * >/= 3% for hip fractures All treatment decisions require clinical judgement and consideration of individual patient factors, including patient preferences, comorbidities, previous drug use, risk factors not captured in the FRAX registered model (e.g., frailty, falls, vitamin D deficiency, increased bone turnover, interval significant decline in bone density) and possible under- or over-estimation of fracture risk by FRAX. Interpreted by: Eliud Núñez DO Preliminary Report By: Eliud Núñez DO Electronically signed By Eliud Núñez DO Dictated Date: 03/27/2024 3:21:59 PM Prelim Date: 03/27/2024 3:23:14 PM Sign Date: 03/27/2024 3:23:14 PM Ordering Provider: MADISON Chao [facility] .Auto Diffon 01-12-2024 Basophil, Absolute 0.0 10 3/mcL Normal 0.0-0.2 [facility] ([place]) Comment on above: Performed By: #### G FR, LIPID, CBC, ADIFF, ANEU, PBNP, MG, TSH, CMP #### [address] [address] Basophils/100 WBC (Bld) 0.6 % Normal 0.0-2.5 [facility] ([place]) Comment on above: Performed By: #### G FR, LIPID, CBC, ADIFF, ANEU, PBNP, MG, TSH, CMP #### [address] [address] Eosinophil, Absolute 0.2 10 3/mcL Normal 0.0-0.4 [facility] ([place]) Comment on above: Performed By: #### G FR, LIPID, CBC, ADIFF, ANEU, PBNP, MG, TSH, CMP #### [address] [address] Eosinophils/100 WBC (Bld) 3.1 % Normal 0.0-7.0 [facility] ([place]) Comment on above: Performed By: #### G FR, LIPID, CBC, ADIFF, ANEU, PBNP, MG, TSH, CMP #### [address] [address] Lymphocyte, Absolute 1.4 10 3/mcL Normal 0.8-3.9 [facility] ([place]) Comment on above: Performed By: #### G FR, LIPID, CBC, ADIFF, ANEU, PBNP, MG, TSH, CMP #### [address] [address] Lymphocytes/100 WBC (Bld) 22.1 % Normal 10.0-50.0 [facility] ([place]) Comment on above: Performed By: #### G FR, LIPID, CBC, ADIFF, ANEU, PBNP, MG, TSH, CMP #### [address] [address] Monocyte, Absolute 0.5 10 3/mcL Normal 0.2-1.0 [facility] ([place]) Comment on above: Performed By: #### G FR, LIPID, CBC, ADIFF, ANEU, PBNP, MG, TSH, CMP #### [address] [address] Monocytes/100 WBC (Bld) 8.4 % Normal 1.7-13.0 [facility] ([place]) Comment on above: Performed By: #### G FR, LIPID, CBC, ADIFF, ANEU, PBNP, MG, TSH, CMP #### [address] [address] Neutrophils/100 WBC (Bld) 65.8 % Normal 37.0-80.0 [facility] ([place]) Comment on above: Performed By: #### G FR, LIPID, CBC, ADIFF, ANEU, PBNP, MG, TSH, CMP #### [address] [address] .GFRon 01-12-2024 GFR 68 ml/min/1.73sqm Normal [facility] ([place]) Comment on above: Result Comment: GFR Population mean for , Non- Americans Ages 20-29 = 116 mL/min/1.73 sq.m. Ages 30-39 = 107 mL/min/1.73 sq.m. Ages 40-49 = 99 mL/min/1.73 sq.m. Ages 50-59 = 93 mL/min/1.73 sq.m. Ages 60-69 = 85 mL/min/1.73 sq.m. Ages 70+ = 75 mL/min/1.73 sq.m. Chronic Kidney Disease: Less than 60 mL/min/1.73 square meters End Stage Renal Disease: Less than 15 mL/min/1.73 square meters Performed By: #### G FR, LIPID, CBC, ADIFF, ANEU, PBNP, MG, TSH, CMP #### [address] [address] GFR Non- 56 ml/min/1.73sqm Normal [facility] ([place]) Comment on above: Result Comment: GFR Population mean for , Non- Americans Ages 20-29 = 116 mL/min/1.73 sq.m. Ages 30-39 = 107 mL/min/1.73 sq.m. Ages 40-49 = 99 mL/min/1.73 sq.m. Ages 50-59 = 93 mL/min/1.73 sq.m. Ages 60-69 = 85 mL/min/1.73 sq.m. Ages 70+ = 75 mL/min/1.73 sq.m. Chronic Kidney Disease: Less than 60 mL/min/1.73 square meters End Stage Renal Disease: Less than 15 mL/min/1.73 square meters Performed By: #### G FR, LIPID, CBC, ADIFF, ANEU, PBNP, MG, TSH, CMP #### [place] [address] .NEUABSon 01-12-2024 Neutrophil, Absolute 4.2 10 3/mcL Normal 2.9-6.2 [facility] ([place]) Comment on above: Performed By: #### G FR, LIPID, CBC, ADIFF, ANEU, PBNP, MG, TSH, CMP #### [place] [address] CBCon 01-12-2024 Erythrocyte distribution width (RBC) [Ratio] 15.4 % High 11.5-14.5 [facility] ([place]) Comment on above: Performed By: #### G FR, LIPID, CBC, ADIFF, ANEU, PBNP, MG, TSH, CMP #### [place] [address] Hematocrit (Bld) [Volume fraction] 34.8 % Low 37.0-47.0 [facility] ([place]) Comment on above: Performed By: #### G FR, LIPID, CBC, ADIFF, ANEU, PBNP, MG, TSH, CMP #### [place] [address] Hgb 11.5 G/dL Low 12.0-16.0 [facility] ([place]) Comment on above: Performed By: #### G FR, LIPID, CBC, ADIFF, ANEU, PBNP, MG, TSH, CMP #### [place] [address] MCH (RBC) [Entitic mass] 27.8 pg Normal 27.0-31.2 [facility] ([place]) Comment on above: Performed By: #### G FR, LIPID, CBC, ADIFF, ANEU, PBNP, MG, TSH, CMP #### [place] [address] MCHC 33.0 G/dL Normal 33.0-37.0 [facility] ([place]) Comment on above: Performed By: #### G FR, LIPID, CBC, ADIFF, ANEU, PBNP, MG, TSH, CMP #### [address] [address] MCV (RBC) [Entitic vol] 84.1 fL Normal 80.0-94.0 [facility] ([place]) Comment on above: Performed By: #### G FR, LIPID, CBC, ADIFF, ANEU, PBNP, MG, TSH, CMP #### [address] [address] Platelet 228 10 3/mcL Normal 130-400 [facility] ([place]) Comment on above: Performed By: #### G FR, LIPID, CBC, ADIFF, ANEU, PBNP, MG, TSH, CMP #### [address] [address] Platelet mean volume (Bld) [Entitic vol] 8.3 fL Normal 7.4-10.4 [facility] ([place]) Comment on above: Performed By: #### G FR, LIPID, CBC, ADIFF, ANEU, PBNP, MG, TSH, CMP #### [address] [address] RBC 4.14 10 6/mcL Low 4.20-5.40 [facility] ([place]) Comment on above: Performed By: #### G FR, LIPID, CBC, ADIFF, ANEU, PBNP, MG, TSH, CMP #### [address] [address] WBC 6.5 10 3/mcL Normal 4.6-10.8 [facility] ([place]) Comment on above: Performed By: #### G FR, LIPID, CBC, ADIFF, ANEU, PBNP, MG, TSH, CMP #### [address] [address] CMPon 01-12-2024 Albumin Level 3.7 G/dL Normal 3.4-4.8 [facility] ([place]) Comment on above: Performed By: #### G FR, LIPID, CBC, ADIFF, ANEU, PBNP, MG, TSH, CMP #### [address] [address] Albumin/Globulin [Mass ratio] 1.1 {ratio} Normal 1.1-2.5 [facility] ([place]) Comment on above: Performed By: #### G FR, LIPID, CBC, ADIFF, ANEU, PBNP, MG, TSH, CMP #### [address] [address] ALP [Catalytic activity/Vol] 57 U/L Normal 40-135 [facility] ([place]) Comment on above: Performed By: #### G FR, LIPID, CBC, ADIFF, ANEU, PBNP, MG, TSH, CMP #### [address] [address] ALT [Catalytic activity/Vol] 20 U/L Normal 14-59 [facility]) Comment on above: Performed By: #### G FR, LIPID, CBC, ADIFF, ANEU, PBNP, MG, TSH, CMP #### [address] [address] AST [Catalytic activity/Vol] 15 U/L Normal 10-40 [facility] ([place]) Comment on above: Performed By: #### G FR, LIPID, CBC, ADIFF, ANEU, PBNP, MG, TSH, CMP #### [address] [address] Bili Total 0.4 mg/dL Normal 0.2-1.0 [facility] ([place]) Comment on above: Result Comment: Use of this assay is not recommended for patients undergoing treatment with eltrombopag due to the potential for falsely elevated results. Performed By: #### G FR, LIPID, CBC, ADIFF, ANEU, PBNP, MG, TSH, CMP #### [address] [address] BUN/Creatinine Ratio 15 ratio Normal 7-27 [facility] ([place]) Comment on above: Performed By: #### G FR, LIPID, CBC, ADIFF, ANEU, PBNP, MG, TSH, CMP #### [address] [address] Calcium [Mass/Vol] 9.6 mg/dL Normal 8.4-10.2 [facility] ([place]) Comment on above: Performed By: #### G FR, LIPID, CBC, ADIFF, ANEU, PBNP, MG, TSH, CMP #### [address] [address] Chloride [Moles/Vol] 105 mmol/L Normal 98-107 [facility] ([place]) Comment on above: Performed By: #### G FR, LIPID, CBC, ADIFF, ANEU, PBNP, MG, TSH, CMP #### [address] [address] CO2 [Moles/Vol] 30 mmol/L Normal 23-31 [facility] ([place]) Comment on above: Performed By: #### G FR, LIPID, CBC, ADIFF, ANEU, PBNP, MG, TSH, CMP #### [address] [address] Creatinine [Mass/Vol] 0.96 mg/dL Normal 0.55-1.02 [facility] ([place]) Comment on above: Performed By: #### G FR, LIPID, CBC, ADIFF, ANEU, PBNP, MG, TSH, CMP #### [address] [address] Electrolyte Balance 8.0 mEq/L Normal 4.0-15.0 [facility] ([place]) Comment on above: Performed By: #### G FR, LIPID, CBC, ADIFF, ANEU, PBNP, MG, TSH, CMP #### [address] [address] Globulin 3.3 G/dL Normal [facility] ([place]) Comment on above: Performed By: #### G FR, LIPID, CBC, ADIFF, ANEU, PBNP, MG, TSH, CMP #### [address] [address] Glucose [Mass/Vol] 100 mg/dL Normal 83-110 [facility] ([place]) Comment on above: Performed By: #### G FR, LIPID, CBC, ADIFF, ANEU, PBNP, MG, TSH, CMP #### [address] [address] Potassium [Moles/Vol] 4.5 mmol/L Normal 3.5-5.1 [facility] ([place]) Comment on above: Performed By: #### G FR, LIPID, CBC, ADIFF, ANEU, PBNP, MG, TSH, CMP #### [address] [address] Sodium [Moles/Vol] 143 mmol/L Normal 136-145 [facility] ([place]) Comment on above: Performed By: #### G FR, LIPID, CBC, ADIFF, ANEU, PBNP, MG, TSH, CMP #### [address] [address] Total Protein 7.0 G/dL Normal 6.4-8.2 [facility] ([place]) Comment on above: Performed By: #### G FR, LIPID, CBC, ADIFF, ANEU, PBNP, MG, TSH, CMP #### [address] [address] Urea nitrogen [Mass/Vol] 14 mg/dL Normal 7-18 [facility] ([place]) Comment on above: Performed By: #### G FR, LIPID, CBC, ADIFF, ANEU, PBNP, MG, TSH, CMP #### [address] [address] LIPIDon 01-12-2024 Cholesterol [Mass/Vol] 150 mg/dL Normal 0-200 [facility] ([place]) Comment on above: Result Comment: Chol esterol Reference Interval: Less than 200 Desirable 200-239 Borderline high risk 240 and above High risk Performed By: #### G FR, LIPID, CBC, ADIFF, ANEU, PBNP, MG, TSH, CMP #### [address] [address] Cholesterol in HDL [Mass/Vol] 49 mg/dL Normal 40-60 [facility] ([place]) Comment on above: Performed By: #### G FR, LIPID, CBC, ADIFF, ANEU, PBNP, MG, TSH, CMP #### [address] [address] Cholesterol in LDL [Mass/Vol] 59 mg/dL Normal 0-130 [facility] ([place]) Comment on above: Performed By: #### G FR, LIPID, CBC, ADIFF, ANEU, PBNP, MG, TSH, CMP #### [address] [address] Triglyceride [Mass/Vol] 208 mg/dL High 0-150 [facility] ([place]) Comment on above: Result Comment: Trig lyceride Reference Interval: Less than 150 Normal 150-199 Borderline high risk 200-499 High risk 500 or higher Very high risk Performed By: #### G FR, LIPID, CBC, ADIFF, ANEU, PBNP, MG, TSH, CMP #### [place] [id number] MGon 01-12-2024 Magnesium [Mass/Vol] 1.7 mg/dL Low 1.8-2.4 [facility] ([place]) Comment on above: Performed By: #### G FR, LIPID, CBC, ADIFF, ANEU, PBNP, MG, TSH, CMP #### [address] [address] PBNPon 01-12-2024 Natriuretic peptide B (Bld) [Mass/Vol] 257 pg/mL Normal 0-450 [facility] ([place]) Comment on above: Result Comment: NT-p roBNP results of less than 300 pg/mL effectively rules out acute congestive heart failure with 99% negative predictive value. Performed By: #### G FR, LIPID, CBC, ADIFF, ANEU, PBNP, MG, TSH, CMP #### [address] [address] TSHon 01-12-2024 TSH Qn 0.93 m[IU]/L Normal 0.36-3.74 [facility] ([place]) Comment on above: Performed By: #### G FR, LIPID, CBC, ADIFF, ANEU, PBNP, MG, TSH, CMP #### [address] [address] Vital Signs Date Time Vital Sign Value Performing Clinician Kimber healy 01-28-2025 14:54-0400 Body height 152.[address] Chuck Mccann DO Work Phone: [facility] 01-28-2025 14:54-0400 Body mass index (BMI) [Ratio] 26.6 kg/m2 Dr. Chuck Mccann DO Work Phone: [facility] 01-28-2025 14:54-0400 Body temperature 97.2 [degF] Dr. Chuck Mccann DO Work Phone: [facility] 01-28-2025 14:54-0400 Body weight 61.[address] Chuck Mccann DO Work Phone: [facility] 01-28-2025 14:54-0400 Diastolic blood pressure 76 mm[Hg] Dr. Chuck Mccann DO Work Phone: [facility] 01-28-2025 14:54-0400 Heart rate 46 /min Dr. Chuck Mccann DO Work Phone: [facility] 01-28-2025 14:54-0400 Respiratory rate 16 /min Dr. Chuck Mccann DO Work Phone: [facility] 01-28-2025 14:54-0400 SaO2% (BldA) [Mass fraction] 96 % Dr. Chuck Mccann DO Work Phone: [facility] 01-28-2025 14:54-0400 Systolic blood pressure 138 mm[Hg] Dr. Chuck Mccann DO Work Phone: [facility] Encounters Encounter Date Encounter Type Care Provider Facility Start: 03-05-2025 ambulatory Chuck Mccann Facilit y:[facility] Start: 02-25-2025 End: 02-25-2025 ambulatory MADISON MAST MACHINE [employer]UELER Facility:[facility] Start: 02-25-2025 End: 02-25-2025 Patient encounter procedure MADISON MAST MACHINE [employer]REFUELER [facility] Start: 02-25-2025 End: 02-25-2025 Well adult monitoring check done MADISON MAST MACHINE [employer]EE[employer]REFUELER [facility] Start: 01-28-2025 End: 01-28-2025 Patient encounter procedure Crystal OSMAN [facility] Work Phone: Start: 01-28-2025 End: 01-28-[address] Chuck Mccann DO Work Phone: [facility] Start: 10-10-2024 End: 10-10-2024 ambulatory KALPESH HUDSON MACHINE [employer]DER [employer]EE[employer]REFUELER Facility:[facility] Start: 10-10-2024 End: 10-10-2024 Patient encounter procedure KALPESH HUDSON MACHINE [employer]DER [employer]EEZE[employer]REFUELER [facility] Start: 09-17-2024 End: 09-18-2024 Emergency department patient visit CIERRA MENDOZA MACHINE [employer]DER [employer]EE[employer]REFUELER Facility:[facility] Start: 03-27-2024 End: 03-27-2024 ambulatory MADISON MAST MACHINE [employer]EE[employer]UELER Facility:[facility] Start: 03-27-2024 End: 03-27-2024 Patient encounter procedure MADISON MAST 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 [employer]ELER [facility] Start: 01-12-2024 End: 01-12-2024 ambulatory CHUCK MCCANN DO Facility:[facility] Procedures Date Procedure Procedure Detail Performing Clinician Cholecystectomy MADISON MAST [employer]ACHINE [employer]EE[employer]UELER History of cholecystectomy Hx of cholecys tectomy MADISON MAST MACHINE [employer]EE[employer]REFUELER Immunizations Immunization Date Immunization Notes Care Provider Fa cility 03-14-2024 influenza, high dose seasonal, preservative-free; Translations: [Fluad PF Prefilled Syringe ] MADISON MAST MACHINE [employer]DER [employer]EE[employer]REFUELER [facility] [place] Payers Date Payer Category Payer Private Health Insurance [id number] 2025 Self-pay 2024 Unknown [id number] 2024 Self-pay [id number] 2024 Unknown [id number] 1945 Unknown [id number] 2.16.8 [id number] 1945 Unknown [id number] 2.16. [id number] 1945 Unknown [id number] 2.16.8 [id number] 1945 Unknown [id number] 2.16.8 [id number] 1945 Unknown [id number] 2.16.8 [id number] Medicare [id number] Medicare [id number] Unknown [id number] Unknown [id number] Unknown [id number] 2.16.8 [id number] Unknown [id number] 2.16.8 [id number] Social History Date Type Detail Facility Start: 03-14-2024 End: 11-19-2024 Tobacco smoking status Never smoked tobacco (finding) [facility] Sex Assigned At [facility] Start: 07-21-2005 Sex Female (finding) [facility] Start: 1945 Sex Assigned At Female [facility] Clinical Notes 03-27-2024 to 01-28-2025 Note Date & Type Note Facility 01-28-2025 Progress note [facility] 01-28-2025 Progress note Note Date/Time January 28, 2025 3:25pm [facility] [address] [place] [address] OFFICE VISIT Date of Service: 01/28/25 MR#: [id number] Acct: [id number] Name: ERMA MIGUEL Rep #: [id number] : 1945 Provider: DAWSON Butts Age/Sex: 79/F Location: [facility] [place] Status: Signed Intake Vital Signs 11/29/17 13:15 01/28/25 14:54 Height 5 ft 5 ft Weight: 136 lb 4 oz BMI 26.6 BP 138/76 H Respiration 16 Pulse 46 L Temp 97.2 F L Temp Source Temporal Pulse Oximetry (%) 96 Oxygen Delivery Method room air Intake Visit Reasons: unintentional wt loss diarrhea abd pain Chief Complaint: weight loss, diarrhea, abdominal pain Allergies acetaminophen (From Percocet) Allergy (Severe, Verified 01/28/25 14:52) Unknown nitrofurantoin (From Macrobid) Allergy (Severe, Verified 01/28/25 14:52) swelling oxycodone (From Percocet) Allergy (Severe, Verified 01/28/25 14:52) Unknown penicillin G Allergy (Severe, Verified 01/28/25 14:52) unknown Sulfa (Sulfonamide Antibiotics) Allergy (Severe, Verified 01/28/25 14:52) unknown phenylpropanolamine (From Entex LA) Allergy (Mild, Verified 01/28/25 14:52) Other guaifenesin Allergy (Verified 01/28/25 14:52) NEEDS FOLLOW-UP phenylephrine Allergy (Verified 01/28/25 14:52) NEEDS FOLLOW-UP atorvastatin Adverse Reaction (Mild, Verified 01/28/25 14:52) muscle pain Medications ?Medication ?Instructions ?Recorded ?Confirmed ?Type cholecalciferol (vitamin D3) 50 2,000 unit PO QDAY 01/28/25 History mcg (2,000 unit) capsule escitalopram oxalate 10 mg tablet 10 mg PO QDAY #90 ta bs 11/29/17 01/28/25 Rx multivitamin 1 tab PO QAM 11/29/17 History omeprazole magnesium 20 mg 20 mg PO QDAY 11/29/1701/11 History tablet,delayed release (Prilosec OTC) cholestyramine 4 gram oral powder 2 g PO BID #30 ea 01/28/25 Rx for suspension in a packet (Cholestyramine Light) clopidogrel 75 mg tablet (Plavix) 75 mg PO QDAY 01/28/25 History cyanocobalamin (vitamin B-12) 1,000 mcg PO QDAY 01/28/25 History 1,000 mcg capsule flaxseed oil 1,000 mg capsule 1,000 mg PO TID 01/28/25 01/28/25 History glucosamine-chondroitin 250 mg-200 2 tab PO QPC 01/28/25 History mg tablet hydralazine 50 cap PO 01/28/25 01/28/25 His tory mg-hydrochlorothiazide 50 mg capsule peg 3350-sod sulf,ejzsk-eeu-fjk See Rx Instructions PO .COMPLEX #2 01/28/25 01/28/25 Rx 178.7-7.3-0.5-1.12-0.9 gram oral mL soln (Suflave) potassium chloride 8 mEq 8 meq PO QDAY 01/28/2501/28 History capsule,extended release rosuvastatin 40 mg tablet 40 mg PO QDAY 01/28/2501/28 History Have you fallen in the past year?: No PFSH Medical History (Updated 01/28/25 @ 15:24 by Crystal Butts NP-C) Panic attacks Osteoarthritis of knees, bilateral MVP (mitral valve prolapse) IBS (irritable bowel syndrome) Hypertriglyceridemia History of [place] (myocardial infarction) Diarrhea Chronic GERD Aortic regurgitation CAD in [place] artery Anemia Anxiety Hypertension Surgical History History of cholecystectomy History of colonoscopy Family History Father Cancer leukemia Mother Heart disease Social History Smoking Status: Never smoker alcohol intake: never substance use type: does not use what type of physical activity do you participate in: walking and bicycling frequency: 3-4 times per week HPI HPI Chief Complaint: weight loss, diarrhea, abdominal pain Details: Labs 09/18/2024 HGB 11, PLT 204 - pretzel, water, and toast the past toast - aching abdominal pain and diarrhea after meals - 6lb weight loss in the past 10 days - diarrhea is after eating - denies any h/o pancreatitis - denies any ATB or travel - denies any well water - denies any bleeding - 2-4x a day depending on how much she has eaten - c/o fecal incontinence - denies any Imodium in the past week - nausea, denies any emesis, resolves after a BM - probiotic x6 weeks no change in symptoms - Plavix h/o [place] - CCX 15-20 years ago - reports she was not aware CCX could result in diarrhea - denies any nocturnal stools - seen in office today with her The patient is an 79-year-old female presenting with gastrointestinal symptoms, primarily chronic diarrhea. The patient reports experiencing diarrhea after meals for the past 20 years, which has worsened in frequency and urgency over the last five years. Despite attempts to identify food triggers, she has been unable to connect diarrhea to specific dietary factors. The episodes consist of liquid diarrhea typically occurring soon after meals. In efforts to manage symptoms, she has used loperamide (Imodium) on an as-needed basis without experiencing rebound constipation. In the past week, she reported an intensification of symptoms, including abdominal cramping and pain, leading to significant dietary restriction to blandfoods like pretzels, water, and toast. Despite these dietary modifications, she experienced a weight loss of approximately six pounds over ten days. It is notedthat she abstained from eating due to these symptoms, impacting her bowel movements' frequency. The patient's medical history is significant for a cholecystectomy performed 15 to 20 years ago, correlating with the onset of diarrhea 20 years ago. She was briefly on a probiotic but discontinued it when gastrointestinal discomfort manifested without subsequent improvement in symptoms. Her medication regimen includes Plavix, taken post-myocardial infarction, and chronic use of escitalopram and omeprazole. She is also on rosuvastatin and a potassium supplement due to previous low levels attributed to stool losses. The patient has no history of pancreatitis, recent antibiotic use, travel, or well water consumption. There is no family history of colon cancer, and she denies any history of colorectal polyps. The patient shared concerns regarding urgent bowel movements causing accidents, although nocturnal diarrhea is rare. She experiences nausea and cramping alleviated by bowel movements and heating pad use, without vomiting or fever. ROS Const Constitutional: Positive for fatigue and weight change (loss); No fever(s) ENT ENT: No difficulty swallowing Gastro GI: Positive for abdominal pain, bloating, change in bowel habits, diarrhea, heartburn and nausea/dyspepsia; No belching, change in stool character, coffee ground emesis, constipation, cramping, difficulty swallowing, feeling full early, excessive flatus, incontinent of stools, Vomiting blood/hematemesis, Blood in stool, loose stools,Black,tarry stools, pain with swallowing, vomiting or other Musc Musculoskeletal: Positive for back pain, muscle cramps, stiffness and Arthritis; No joint pain Skin Skin: No yellowing of the eye or itchy eyes Neuro Neurology: Positive for dizziness Psych Psychiatric: No anxiety and No depression Endo Endocrine: Positive for fatigue and weight change (loss) Aller/Imm Allergy/Immunologic: No itchy eyes Dioni/Lymp Hematologic/Lymphatic: Positive for easy bleeding and easy bruising ROS Narrative - Gastrointestinal: Reports chronic diarrhea, postprandial urgency, stomach cramps, abdominal pain, weight loss. Denies vomiting, blood in stools, recent travel history, recent antibiotic usage. - Cardiovascular: History of myocardial infarction, taking Plavix; denies recentchest pain. - Constitutional: Reports weight loss, general malaise. - Respiratory: Denies lung disease or symptoms. - Genitourinary: History of kidney stones; denies current symptoms. - Musculoskeletal: Denies significant symptoms. - Neurological: Denies symptoms. Exam Const General: cooperative, healthy appearing, no acute distress and well developed Nutritional Appearance: average body habitus and well nourished Orientation: alert and oriented x3 [facility] Head: normocephalic Ears: hearing grossly normal bilaterally Mouth: moist mucous membranes Teeth and gingiva: dentition normal Eyes Conjunctivae: conjunctivae normal Sclera: sclerae normal Neck Neck: normal visual inspection, full ROM and trachea midline Resp Effort & Inspection: normal respiratory effort, able to speak in complete sentences and symmetric chest movement Neuro General: patient alert and patient oriented x3 Cranial Nerves: other (CN's grossly intact, non-focal exam) Cognition: normal cognition Speech: speech normal Gait: normal gait Psych Appearance: grossly normal and well kempt Affect: normal affect Attitude: cooperative Thought Process: normal Assessment and Plan Assessment and Plan (1) Diarrhea: Status: Acute Plan: Initiate stool testing to rule out infectious or inflammatory causes. Plan for ascheduled colonoscopy to ensure structural integrity of the colon and rule out potential lesions. Discussed potential initiation of cholestyramine therapy contingent on negative stool studies for bacterial or parasitic agents. If appropriate, prescribe cholestyramine starting with half-packet twice daily, adjusting based on tolerance and efficacy, to address bile acid-induced diarrhea. Medications: New peg 3350-sod sulf,elis-sdr-tvj 178.7-7.3-0.5 gram (Suflave) Take as directed for split dose bowel prep 2 mL 0RF cholestyramine (Cholestyramine Light) administer w/meal; avoid other meds within 1hr before or 4-6hr after dose 2 grams PO BID 30 ea 1RF Plan 79-year-old female with history of cholecystectomy presenting with chronic diarrhea. The symptomatology, including postprandial diarrhea since the removal of the gallbladder, suggests bile acid diarrhea, likely exacerbated by changes in dietary habits and prior medical history. Notably, her bowel pattern has significantly hindered quality of life recently, causing distress and weight loss. The patient exhibits other symptoms such as nausea and abdominal cramping,reasonably correlated with bile acid malabsorption. Differential diagnoses were considered, but her clinical picture aligns best with bile acid diarrhea. However, confirmation and exclusion of other etiologies will be conducted via stool testing and a future colonoscopy. Patient Instructions: Complete [facility] stool testing Colonoscopy - SuFlave If stool testing is negative she will start Cholestyramine (RX sent to pharmacy) Coding Level of Care Code Off vis,new,level 3 Diagnoses Diarrhea R19.7 Clinical Quality Measures Falls Risk Screening/Assistive Devices Have you fallen in the past year?: No Smoking Screening Smoking Status: Never smoker 01/28/25 5180 <Electronically signed by Crystal OSMAN> Date _ Crystal OSMAN Cosigner Signature: Date (if applicable) CC: ~ Harvey Raise Work Phone: [phone] 498-244910-15-2024 Note ORIGINAL EXAMINATION: BONE DENSITOMETRY 03/27/2024 2:31 pm TECHNIQUE: A bone density dual x-ray absorptiometry (DEXA) scan was performed of the axial (e.g. hips, spine) and/or appendicular (e.g. radius) skeleton as appropriate. COMPARISON: 06/22/2013 HISTORY: ORDERING SYSTEM PROVIDED HISTORY: Reason for Exam: Osteoporosis Screening FINDINGS: T Score Left Femoral Neck: -2.3 Left Femoral Neck: 0.598 (g/cm2) T Score Left Hip: -1.9 Left Hip: 0.704 (g/cm2) T Score Lumbar Spine: -1.4 Lumbar Spine: 0.897 (g/cmd2) BMD change from previous lumbar Spine: 9.8% BMD change from previous hip:-5.5% FRAX: 10 year fracture risk assessment Major osteoporotic fracture: 31% Hip fracture: 21% IMPRESSION: Osteopenia by WHO criteria. World Health Organization criteria: (Comparing with young normal sex matched population) - Normal: T-score at or above -1 SD (standard deviation) - Osteopenia: T-score between -1 and -2.5 SD - Osteoporosis: T-score at or below -2.5 SD The NOF recommends that FDA-approved medical therapies be considered in post-menopausal women and men age >/= 50 years with a: * Hip or vertebral fracture, or * T-score of /= 20% for major osteoporotic fractures or * >/= 3% for hip fractures All treatment decisions require clinical judgement and consideration of individual patient factors, including patient preferences, comorbidities, previous drug use, risk factors not captured in the FRAX registered model (e.g., frailty, falls, vitamin D deficiency, increased bone turnover, interval significant decline in bone density) and possible under- or over-estimation of fracture risk by FRAX. Interpreted by: Eliud Núñez DO Preliminary Report By: Eliud Núñez DO Electronically signed By Eliud Núñez DO Dictated Date: 03/27/2024 3:21:59 PM Prelim Date: 03/27/2024 3:23:14 PM Sign Date: 03/27/2024 3:23:14 PM [facility] Future App[facility]ments Appointment Date:07/23/2024 10:00:00 AM Scheduled Provider:KALPESH HUDSON Location[facility] Appointment Type:CV OV Appointment Date:09/12/2024 10:00:00 AM Scheduled Provider:MADISON RUIZ Location:[facility] Appointment Type:PC OV Future Scheduled Tests Laboratory* Complete Blood Count 12/26/23 * Lipid Profile 12/26/23 * Complete Metabolic Panel 12/26/23 [facility] Evaluation + Plan note Future Appointments Appointment Date:01/02/2025 10:30:00 AM Scheduled Provider:KALPESH HUDSON Location:[facility] Appointment Type:CV OV Appointment Date:01/30/2025 10:00:00 AM Scheduled Provider:KALPESH HUDSON Location:[facility] Appointment Type:CV OV Appointment Date:03/13/2025 10:00:00 AM Scheduled Provider:MADISON RUIZ Location:[facility] Appointment Type:[facility] Medicare Future Scheduled Tests Laboratory* Complete Blood Count 12/26/23 * Complete Blood Count 09/12/24 * Lipid Profile 12/26/23 * Lipid Profile 09/12/24 * Complete Metabolic Panel 12/26/23 * Complete Metabolic Panel 09/12/24 [facility] Evaluation + Plan note Future Appointments Appointment Date:03/13/2025 10:00:00 AM Scheduled Provider:MADISON RUIZ Location:[facility] Appointment Type:PC Wellness Medicare Appointment Date:09/30/2025 01:00:00 PM Scheduled Provider:KALPESH HUDSON Location:[facility] Appointment Type:CV OV [facility] Evaluation note* Diagnosis Onset Date Resolution Status Admit Date Diarrhea acute January 28 025 2:41pm [facility] Work Phone: Hospital course Narrative No data available for this section [facility] Hospital Discharge instructions No data available for this section [facility] Progress note No data available for this section [facility] Reason for referral (narrative)No reason for referral [facility] Work Phone: Summary Purpose Family History No Family History Records Found Relationship Condition Age at Onset Recorded Date/T suha father Malignant neoplasm Unknown mother Cardiac disease Unknown Advance Directives No Advanced Directives Records FoundNo Advanced Directives Records FoundNo Advanced Directives Records Found Chief Complaint and Reason for Visit Chief Complaint Admit Date unintentional wt loss diarrhea abd pain January 28, 2025 2:41pm Reason for Visit Admit Date Diarrhea January 28, 2025 2: 41pm Additional Source Comments INFORMATION SOURCE (unrecogn ized section and content) DATE CREATED AUTHOR 01/14/2024 [facility] ([place]) DATE CREATED AUTHOR AUTHOR'S ORGANIZ ATION 02/26/2025 [facility] DATE CREATED AUTHOR AUTHOR'S ORGANIZ ATION 03/05/2025 [facility] Patient Care team informatio n (unrecognized section and content) Team Status: Active Member Role/Relationship Status Dates Dr. Chuck Mccann DO Family Provider Active Dr. Chuck Mccann DO Primary Care Provider Active Team Status: Inactive Member Role/Relationship Status Dates Dr. Chuck Mccann , Primary Care Provider Active Start: January 28, 2025 End: January 28, 2025 Dr. Chuck Mccann DO Referring Provider Active Start: January 28, 2025 End: January 28, 2025 DAWSON Cardoso Attending Provider Active Start: January 28, 2025 End: January 28, 2025 Goals (unrecognized section and content) Goals may be documented in a n alternate section FOR RECORDS PERTAINING TO PATIENTS WHO ARE OR HAVE BEEN ENROLLED IN A CHEMICAL DEPENDENCY/SUBSTANCEABUSE PROGRAM, SOME INFORMATION MAY BE OMITTED. This clinical summary was aggregated from multiple sources. Caution should be exercised in using it in the provision of clinical care. This summary normalizes information from multiple sources, and as a consequence, information in this document may materially change the coding, format and clinical context of patient data. In addition, data may be omitted in some cases. CLINICAL DECISIONS SHOULD BE BASED ON THE PRIMARY CLINICAL RECORDS. [facility]. provides no warranty or guarantee of the accuracy or completeness of information in this document.
--- NOTE | 2025-03-05 15:23 | PCM.POST.ANE ---
Anesthesia: Postop Eval I Current Vital Signs Temperature: 97 F Pulse Rate: 77 Blood Pressure: 135/58 Respiratory Rate: 16 Pulse Ox: 99 Assessment Airway patent: Yes Spontaneous unlabored respirations: Yes nausea: No Vomiting: No Anesthesia Complication: No Fluid Hydration Crystalloid volume administer (ml): 500 Total IV fluid infused: 500 Progress Note Anesthesia document: Postop Eval 1 completed: Yes
--- NOTE | 2025-03-05 15:27 | OP.PROVAT_ITS ---
03/05/2025 Miki Mccann Re : Upper GI endoscopy procedure for Mechelle Chua Dear Dr. Mccann This procedure was performed on Wednesday, March 05, 2025. My impressions and recommendations are as follows: Impressions : - Mild Schatzki ring. - Non-bleeding gastric ulcers with no stigmata of bleeding. Biopsied. - Non-bleeding gastric ulcers with no stigmata of bleeding. Biopsied. - Erythematous duodenopathy. Biopsied. Recommendations : - Discharge patient to home. - Resume previous diet. - Continue present medications. - Await pathology results. My findings are described in the full procedure note, which is enclosed. If I can be of further assistance, please feel free to contact me at . Sincerely, Juan M Callahan, 03/05/2025 3:26:42 PM This report has been signed electronically.
--- NOTE | 2025-03-05 15:27 | OP.EGD_ITS ---
Patient Name: Mechelle Chua Procedure Date: 03/05/2025 2:40 PM Date of : 1945 Age: 80 Procedure: Upper GI endoscopy Indications: Epigastric abdominal pain, Abdominal pain in the left upper quadrant, Iron deficiency anemia Providers: Juan M Callahan DO Medicines: Monitored Anesthesia Care Patient Profile: This is an 80 year old female. Refer to note in patient chart for documentation of history and physical. Patient has symptoms of chronic abdominal cramping, acute epigastric abdominal pain, acute dyspepsia and chronic nausea. Complications: No immediate complications. Procedure: Pre-Anesthesia Assessment: - Prior to the procedure, a History and Physical was performed, and patient medications and allergies were reviewed. The patient is competent. The risks and benefits of the procedure and the sedation options and risks were discussed with the patient. All questions were answered and informed consent was obtained. Patient identification and proposed procedure were verified by the physician in the pre-procedure area. Mental Status Examination: alert and oriented. Airway Examination: normal oropharyngeal airway and neck mobility. Respiratory Examination: clear to auscultation. CV Examination: normal. Prophylactic Antibiotics: The patient does not require prophylactic antibiotics. Prior Anticoagulants: The patient has taken no anticoagulant or antiplatelet agents. ASA Grade Assessment: II - A patient with mild systemic disease. After reviewing the risks and benefits, the patient was deemed in satisfactory condition to undergo the procedure. The anesthesia plan was to use monitored anesthesia care (MAC). Immediately prior to administration of medications, the patient was re-assessed for adequacy to receive sedatives. The heart rate, respiratory rate, oxygen saturations, blood pressure, adequacy of pulmonary ventilation, and response to care were monitored throughout the procedure. The physical status of the patient was re-assessed after the procedure. After obtaining informed consent, the endoscope was passed under direct vision. Throughout the procedure, the patient's blood pressure, pulse, and oxygen saturations were monitored continuously. The Colonoscope was introduced through the mouth, and advanced to the fourth part of the duodenum. Small bowel enteroscopy was deemed necessary. The upper GI endoscopy was accomplished without difficulty. The patient tolerated the procedure well. Scope In: 2:52:28 PM Scope Out: 2:57:37 PM Total Procedure Duration Time 0 hours 5 minutes 9 seconds Findings: A mild Schatzki ring was found at the gastroesophageal junction. Few non-bleeding linear gastric ulcers with no stigmata of bleeding were found in the gastric body. The largest lesion was 10 mm in largest dimension. Biopsies were taken with a cold forceps for histology. Biopsies were taken with a cold forceps for Helicobacter pylori testing. Verification of patient identification for the specimen was done. Estimated blood loss was minimal. Few non-bleeding linear gastric ulcers with no stigmata of bleeding were found in the gastric antrum and in the prepyloric region of the stomach. Biopsies were taken with a cold forceps for histology. Biopsies were taken with a cold forceps for Helicobacter pylori testing. Verification of patient identification for the specimen was done. Estimated blood loss was minimal. Patchy mildly erythematous mucosa without active bleeding and with no stigmata of bleeding was found in the entire duodenum. Biopsies were taken with a cold forceps for histology. Verification of patient identification for the specimen was done. Estimated blood loss was minimal. Impression: - Mild Schatzki ring. - Non-bleeding gastric ulcers with no stigmata of bleeding. Biopsied. - Non-bleeding gastric ulcers with no stigmata of bleeding. Biopsied. - Erythematous duodenopathy. Biopsied. Recommendation: - Discharge patient to home. - Resume previous diet. - Continue present medications. - Await pathology results. Procedure Code(s): --- Professional --- 16209, Small intestinal endoscopy, enteroscopy beyond second portion of duodenum, not including ileum; with biopsy, single or multiple CPT copyright 2021 [employer] [employer]. All rights reserved. The codes documented in this report are preliminary and upon roving marker review may be revised to meet current compliance requirements. Juan M Callahan DO 03/05/2025 3:26:42 PM This report has been signed electronically. Number of Addenda: 0 Note Initiated On: 03/05/2025 2:40 PM
--- NOTE | 2025-03-05 15:33 | OP.COLON_ITS ---
Patient Name: Mechelle Chua Procedure Date: 03/05/2025 2:57 PM Date of : 1945 Age: 80 Procedure: Colonoscopy Indications: Chronic diarrhea Providers: Juan M Callahan DO Medicines: Monitored Anesthesia Care Patient Profile: This is an 80 year old female. Refer to note in patient chart for documentation of history and physical. Patient has symptoms of chronic abdominal cramping, acute epigastric abdominal pain, acute dyspepsia and chronic nausea. Last Colonoscopy: several years ago. Complications: No immediate complications. Procedure: Pre-Anesthesia Assessment: - Prior to the procedure, a History and Physical was performed, and patient medications and allergies were reviewed. The patient is competent. The risks and benefits of the procedure and the sedation options and risks were discussed with the patient. All questions were answered and informed consent was obtained. Patient identification and proposed procedure were verified by the physician in the pre-procedure area. Mental Status Examination: alert and oriented. Airway Examination: normal oropharyngeal airway and neck mobility. Respiratory Examination: clear to auscultation. CV Examination: normal. Prophylactic Antibiotics: The patient does not require prophylactic antibiotics. Prior Anticoagulants: The patient has taken no anticoagulant or antiplatelet agents. ASA Grade Assessment: II - A patient with mild systemic disease. After reviewing the risks and benefits, the patient was deemed in satisfactory condition to undergo the procedure. The anesthesia plan was to use monitored anesthesia care (MAC). Immediately prior to administration of medications, the patient was re-assessed for adequacy to receive sedatives. The heart rate, respiratory rate, oxygen saturations, blood pressure, adequacy of pulmonary ventilation, and response to care were monitored throughout the procedure. The physical status of the patient was re-assessed after the procedure. After I obtained informed consent, the scope was passed under direct vision. Throughout the procedure, the patient's blood pressure, pulse, and oxygen saturations were monitored continuously. The Colonoscope was introduced through the anus and advanced to 10 cm into the ileum. The colonoscopy was performed without difficulty. The patient tolerated the procedure well. The quality of the bowel preparation was adequate. The terminal ileum, ileocecal valve, appendiceal orifice, and rectum were photographed. Scope In: 2:59:02 PM Scope Withdrawal Time 0 hours 12 minutes 8 seconds Scope Out: 3:15:49 PM Total Procedure Duration Time 0 hours 16 minutes 47 seconds Findings: The perianal and digital rectal examinations were normal. Multiple small and large-mouthed diverticula were found in the recto-sigmoid colon, sigmoid colon and descending colon. An area of mildly congested mucosa was found in the recto-sigmoid colon, in the sigmoid colon, at the hepatic flexure, in the ascending colon and at the appendiceal orifice. Biopsies were taken with a cold forceps for histology. Verification of patient identification for the specimen was done. Estimated blood loss was minimal. A patchy area of the distal ileum and terminal ileum was congested. Biopsies were taken with a cold forceps for histology. Verification of patient identification for the specimen was done. Estimated blood loss was minimal. An 8 mm polyp was found in the cecum. The polyp was sessile. The polyp was removed with a cold biopsy forceps. Resection and retrieval were complete. Verification of patient identification for the specimen was done. Estimated blood loss was minimal. Moderate rectal prolapse was present. Impression: - Diverticulosis in the recto-sigmoid colon, in the sigmoid colon and in the descending colon. - Congested mucosa in the recto-sigmoid colon, in the sigmoid colon, at the hepatic flexure, in the ascending colon and at the appendiceal orifice. Biopsied. - Congested mucosa in the distal ileum and in the terminal ileum. Biopsied. - One 8 mm polyp in the cecum, removed with a cold biopsy forceps. Resected and retrieved. Recommendation: - Discharge patient to home (ambulatory). - Resume previous diet. - No repeat colonoscopy due to age. - Continue present medications. Procedure Code(s): --- Professional --- 64931, Colonoscopy, flexible; with biopsy, single or multiple CPT copyright 2021 [employer]. All rights reserved. The codes documented in this report are preliminary and upon crushing mill operator review may be revised to meet current compliance requirements. Juan M Callahan DO 03/05/2025 3:33:17 PM This report has been signed electronically. Number of Addenda: 0 Note Initiated On: 03/05/2025 2:57 PM
--- NOTE | 2025-03-05 15:33 | OP.PROVAT_ITS ---
03/05/2025 Miki Mccann Re : Colonoscopy procedure for Mechelle Chua Dear Dr. Mccann This procedure was performed on Wednesday, March 05, 2025. My impressions and recommendations are as follows: Impressions : - Diverticulosis in the recto-sigmoid colon, in the sigmoid colon and in the descending colon. - Congested mucosa in the recto-sigmoid colon, in the sigmoid colon, at the hepatic flexure, in the ascending colon and at the appendiceal orifice. Biopsied. - Congested mucosa in the distal ileum and in the terminal ileum. Biopsied. - One 8 mm polyp in the cecum, removed with a cold biopsy forceps. Resected and retrieved. Recommendations : - Discharge patient to home (ambulatory). - Resume previous diet. - No repeat colonoscopy due to age. - Continue present medications. My findings are described in the full procedure note, which is enclosed. If I can be of further assistance, please feel free to contact me at . Sincerely, Juan M Callahan DO 03/05/2025 3:33:17 PM This report has been signed electronically.
--- NOTE | 2025-03-05 17:46 | POSTOPAN2_ITS ---
Anesthesia Postop Eval I Sum Postop Eval Completion status Anesthesia document: Postop Eval 1 completed: Yes Anesthesia Postop Eval I Summary Anesthesia Postop Eval I Summary: Anesthesia Postop Eval I: Assessment Summary Airway patent Yes 03/05/25 15:23 [email or web address] Spontaneous unlabored Yes 03/05/25 15:23 [email or web address] [email or web address] respirations Mental status nausea No 03/05/25 15:23 [email or web address] [email or web address] Vomiting No 03/05/25 15:23 [email or web address] Anesthesia Postop Eval I: Fluid Summary Crystalloid volume administer 500 03/05/25 15:23 [email or web address] (ml) Colloids volume administered ( ml) Blood Product volume administered (ml) Total IV fluid infused 500 03/05/25 15:23 [email or web address] Anesthesia Postop Eval I: Summary Notes Anesthesia Complication No 03/05/25 15:23 [email or web address] Anesthesia Complication Comment: Post-operative progress note Anesthesia: Postop Eval II Evaluation Mental status: Awake and Calm Pain Level: 0 nausea: No Vomiting: No Complications Anesthesia Complication: No
--- NOTE | 2025-03-05 17:46 | PCM.POSTANE2 ---
Anesthesia Postop Eval I Sum Postop Eval Completion status Anesthesia document: Postop Eval 1 completed: Yes Anesthesia Postop Eval I Summary Anesthesia Postop Eval I Summary: Anesthesia Postop Eval I: Assessment Summary Airway patent Yes 03/05/25 15:23 [email or web address] Spontaneous unlabored Yes 03/05/25 15:23 [email or web address] respirations Mental status nausea No 03/05/25 15:23 [email or web address] Vomiting No 03/05/25 15:23 [email or web address] Anesthesia Postop Eval I: Fluid Summary Crystalloid volume administer 500 03/05/25 15:23 [email or web address] (ml) Colloids volume administered ( ml) Blood Product volume administered (ml) Total IV fluid infused 500 03/05/25 15:23 [email or web address] Anesthesia Postop Eval I: Summary Notes Anesthesia Complication No 03/05/25 15:23 [email or web address] Anesthesia Complication Comment: Post-operative progress note Anesthesia: Postop Eval II Evaluation Mental status: Awake and Calm Pain Level: 0 nausea: No Vomiting: No Complications Anesthesia Complication: No
== END 2025-03-05 16:09 | disposition home or self-care (01) ==
LOC: EN 13:12 → AC 13:14
PROVIDERS: PCP Family Medicine; Referring Provider Family Medicine; Visit Provider Internal Medicine Gastroenterology
PROC: 0DJD8ZZ Inspection of Lower Intestinal Tract, Via Natural or Artificial Opening Endoscopic (ICD-10-PCS; CPT 45378; principal; 2025-03-05 14:25)
DX: K52.9 Noninfective gastroenteritis and colitis, unspecified (principal); K63.89 Other specified diseases of intestine; Z79.82 Long term (current) use of aspirin; I10 Essential (primary) hypertension; E78.00 Pure hypercholesterolemia, unspecified; K25.9 Gastric ulcer, unspecified as acute or chronic, without hemorrhage or perforation; K57.30 Diverticulosis of large intestine without perforation or abscess without bleeding; K21.9 Gastro-esophageal reflux disease without esophagitis; R63.4 Abnormal weight loss; R10.9 Unspecified abdominal pain; Z90.49 Acquired absence of other specified parts of digestive tract; Z79.02 Long term (current) use of antithrombotics/antiplatelets; I25.2 Old myocardial infarction; F41.0 Panic disorder [episodic paroxysmal anxiety]; Z79.899 Other long term (current) drug therapy; Z98.41 Cataract extraction status, right eye; Z98.42 Cataract extraction status, left eye; Z95.5 Presence of coronary angioplasty implant and graft; Z68.22 Body mass index [BMI] 22.0-22.9, adult; K22.2 Esophageal obstruction; K31.89 Other diseases of stomach and duodenum; K29.50 Unspecified chronic gastritis without bleeding; D12.0 Benign neoplasm of cecum
CPT/HCPCS: 44361; 45380; 88305; 88342; J2405